=== PATIENT | male | born 1960 | race Caucasian/White ===

== ENCOUNTER → 2019-12-07 09:32 | Outpatient (CLI) | payer OTHER, SELFPAY ==
[2019-12-07 10:11] LABS: Add Manual Diff / Slide Review NO; Basophils Absolute Auto 100 /uL (0-100); Basophils Percent Auto 1.1 % (0-2); Eosinophils Absolute Auto 100 /uL (0-450); Eosinophils Percent Auto 1.1 % (2-4); Hematocrit 42.2 % (41-53); Hemoglobin 14.3 g/dL (13.5-17.5); Lymphocytes Absolute Auto 2000 /uL (1100-4500); Lymphocytes Percent Auto 32.9 % (25-40); Mean Corpuscular HGB Conc 33.9 % (30-36); Mean Corpuscular Hemoglobin 31.3 PG (26-34); Mean Corpuscular Volume 92.2 fL (80-100); Monocytes Absolute Auto 400 /uL (0-900); Monocytes Percent Auto 7.2 % (3-14); Neutrophils Absolute Auto 3500 /uL (1500-7000); Neutrophils Percent Auto 57.7 % (50-75); Platelet Count 250 X10^3/uL (150-400); Red Blood Cell Count 4.58 X10^6/uL (4.5-5.9); Red Cell Distribution Width 13.2 % (11.6-14.8); White Blood Cell Count 6.1 X10^3/uL (4.5-11.0)
[2019-12-07 11:02] LABS: Alanine Aminotransferase 17 IU/L (<50); Albumin Globulin Ratio 1.4 (1.0-2.8); Alkaline Phosphatase 42 U/L (38-126); Aspartate Aminotransferase 30 IU/L (17-59); Bilirubin Total 0.7 mg/dL (0.2-1.3); Blood Urea Nitrogen 11 mg/dL (9-20); Calcium 9.7 mg/dL (8.4-10.2); Carbon Dioxide 32 mmol/L (22-32); Chloride 104 mmol/L (98-107); Cholesterol 190 mg/dL (140-199); Estimated Glomerular Filt Rate > 60.0 mL/min (>60); Globulin 2.9 g/dL (1.7-4.1); Glucose 98 mg/dL (80-110); HDL Cholesterol 46 mg/dL (40-60); HEMOLYSIS < 15 (0-50); LDL Cholesterol Calculated 126 mg/dL (<100); Potassium 4.9 mmol/L (3.4-5.1); Sodium 139 mmol/L (137-145); Total Protein 6.9 g/dL (6.3-8.2); Triglycerides 89 mg/dL (35-150)
[2019-12-07 11:17] LABS: Vitamin D 25 Hydroxy (D3) 49.9 ng/mL (30.0-100.0)
[2019-12-07 11:19] LABS: Free T3, Triiodothyronine Free 3.39 pg/mL (2.77-5.27); Free T4, Direct Thyroxine 0.68 ng/dL (0.78-2.19)
[2019-12-07 11:32] LABS: Thyroid Stimulating Hormone 1.97 uIU/mL (0.47-4.68)
== END ==
PROVIDERS: PCP Family Medicine; Referring Provider Family Medicine; Visit Provider Family Medicine
DX: E05.90 Thyrotoxicosis, unspecified without thyrotoxic crisis or storm (principal); Z86.39 Personal history of other endocrine, nutritional and metabolic disease
CPT/HCPCS: 36415; 80053; 80061; 82306; 84439; 84443; 84481; 85025

== ENCOUNTER → 2021-06-30 08:03 | Outpatient (CLI) | payer OTHER, SELFPAY ==
[2021-06-30 09:16] LABS: Blood Urea Nitrogen 10 mg/dL (9-20); Calcium 9.7 mg/dL (8.4-10.2); Carbon Dioxide 33 mmol/L (22-32); Chloride 105 mmol/L (98-107); Estimated Glomerular Filt Rate > 60.0 mL/min (>60); Glucose 95 mg/dL (80-110); HEMOLYSIS < 15 (0-50); Potassium 4.4 mmol/L (3.4-5.1); Sodium 139 mmol/L (137-145)
[2021-06-30 09:48] LABS: TSH w/ Reflex to FT4 1.66 uIU/mL (0.47-4.68)
== END ==
PROVIDERS: PCP Student in an Organized Health Care Education/Training Program; Referring Provider Student in an Organized Health Care Education/Training Program; Visit Provider Student in an Organized Health Care Education/Training Program
DX: I10 Essential (primary) hypertension (principal)
CPT/HCPCS: 36415; 80048; 84443

== ENCOUNTER → 2021-11-26 07:45 | Outpatient (CLI) | payer OTHER, SELFPAY | PROVIDERS: PCP Student in an Organized Health Care Education/Training Program; Referring Provider Student in an Organized Health Care Education/Training Program; Visit Provider Student in an Organized Health Care Education/Training Program | DX: Z12.5 Encounter for screening for malignant neoplasm of prostate (principal) | CPT/HCPCS: 36415; G0103 ==

== ENCOUNTER → 2022-09-07 12:50 | Outpatient (CLI) | payer OTHER, SELFPAY ==
--- NOTE | 2022-09-07 12:51 | DI.CT.S_ITS ---
PROCEDURE: CT HEAD/BRAIN WO CON INDICATIONS: Concussion TECHNIQUE: Noncontrast 4.5 mm thick angled axial sections acquired from the foramen magnum to the vertex, with coronal and sagittal reformats. For radiation dose reduction, the following was used: automated exposure control, adjustment of mA and/or kV according to patient size. COMPARISON: None. FINDINGS: Image quality: Excellent. CSF spaces: Basal cisterns are patent. No extra-axial fluid collections. Ventricles are normal in size and shape. Brain: No midline shift. No intracranial masses or hemorrhage. Cummings-white matter interface is normal. Skull and face: Calvarium and visualized facial bones are intact, without suspicious lesions. Sinuses: Visualized sinuses and mastoids are clear. IMPRESSION: No acute intracranial abnormality. Dictated by: Nitin Ware M.D. on 09/07/2022 at 13:03 Approved by: Nitin Ware M.D. on 09/07/2022 at 13:07
== END ==
PROVIDERS: PCP Student in an Organized Health Care Education/Training Program; Referring Provider Student in an Organized Health Care Education/Training Program; Visit Provider Student in an Organized Health Care Education/Training Program
DX: S06.0XAA Concussion with loss of consciousness status unknown, initial encounter (principal); X58.XXXA Exposure to other specified factors, initial encounter
CPT/HCPCS: 70450

== ENCOUNTER 2022-09-09 06:48 | Day surgery (SDC) | payer OTHER, SELFPAY ==
[2022-09-04 14:48] VITALS: BMI 27.9
[2022-09-09 07:17] VITALS: BP 124/78; PULSE 65; RESP 21; TEMP 36.6; O2SAT 100; BMI 27.9
[2022-09-09] MEDS: LACTATED RINGERS 1,000 ML 100 ML IV (07:28)
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
[2022-09-09] MEDS: CLINDAMYCIN 900 MG/50 ML PIGGYBACK 50 MG IV (07:50)
--- NOTE | 2022-09-09 08:06 | SUR.OPER ---
Supine on padded OR bed, head on pillow, arms secured on padded arm boards at <90 degrees abduction, legs uncrossed, safety belt at thigh, tape over blanket over lower legs. Gel pad under heels.
[2022-09-09] MEDS: BUPIVACAINE 0.25% (PF) VIAL 30 ML INJ (08:13)
--- NOTE | 2022-09-09 08:57 | P.OP_ITS ---
Operative Date/Time/Diagnoses Date of procedure: 09/09/22 Time of procedure: 08:57 Pre-op diagnosis: Left inguinal hernia Post-op diagnosis: same Procedure & Clinicians Procedure: Open left inguinal hernia repair with mesh Same procedure as scheduled: Yes Indications: 62-year-old man with a symptomatic reducible left inguinal hernia. Surgeon: Murali Chavez Anesthesia Type: General Operative Notes Findings: Left indirect defect. No direct floor hernia Specimen(s): none sent Estimated Blood Loss (mL): 10 Procedure in detail: The patient was placed supine on the table and bilateral lower extremity compression devices were applied. Anesthesia was induced they were intubated with an LMA and received clindamycin. A time-out was performed. They were prepped and draped in sterile fashion. The left external inguinal ring and the anterior superior iliac crest were identified and marked. 1 finger breath above the inguinal ligament the skin was infiltrated with 0.25% bupivacaine. The skin incision was made, the subcutaneous tissues were divided with electrocautery exposing the external oblique aponeurosis which was then opened along the direction of its fibers. Using blunt dissection the internal oblique aporneurosis was from the external oblique upper leaflet. The cord was carefully dissected away from the inguinal canal adjacent to the pubic tubercle. The cord including the vas deferens, testicular bloody supply, ilioguinal and genital nerve were encircled with a Alexia drain. No direct f anahy defect within the inguinal canal was identified.. The cremasteric fibers surrounding the cord were divided adjacent to the internal ring. The vas deferens and the testicular vessels were preserved and protected. The cord contents were carefully explored. There was a small indirect hernia on the anterior medial aspect of the cord which was skeletonized away from the vas deferens and testicular blood supply. The indirect hernia was skeletonized back to the internal ring and reduced spontaneously into the abdomen. A 7x 15 cm lightweight Bard Pro Loop hernia mesh was anchored to the insertion of the rectus muscle at the pubic tubercle such that there was approximately 2 cm of tubercle overlap with Ethibond. The inferior edge of the mesh was secured to the shelving edge of the inguinal ligament using Ethibond. Interrupted 3 0 Vicryl suture was used to anchor the superior aspect of the mesh to the conjoined tendon in several places. The tails were then reapproximated loosely around the spermatic cord. The tails of the mesh were then tucked under the external oblique aponeurosis. The repair was checked for hemostasis. The wound was irrigated with sterile saline. The external oblique aponeurosis was reapproximated in a running fashion using 3 0 Vicryl. The subcutaneous tissues were reapproximated with 3 0 Vicryl skin closed with 4 0 Monocryl followed by the application of Dermabond. At the end of the operation I ensured that both testicles were within the scrotum. The sponge instrument count at the end operation was correct. The patient emerged from anesthesia was extubated and transferred to the postoperative care unit in stable condition. A total of 30 ml of of 0.25% bupivicaine was used to infiltrate the skin. Complications: none Post-operative Condition: stable Disposition: same day surgery
[2022-09-09 08:58] VITALS: BP 118/61; PULSE 90; RESP 18; TEMP 36.3; O2SAT 95
[2022-09-09 09:03] VITALS: BP 134/68; PULSE 96; RESP 16; O2SAT 94
[2022-09-09 09:08] VITALS: BP 125/62; PULSE 87; RESP 20; O2SAT 93
[2022-09-09 09:12] VITALS: BP 109/63; PULSE 76; RESP 20; TEMP 36.3; O2SAT 92
[2022-09-09 09:23] VITALS: BP 108/63; PULSE 85; RESP 18; TEMP 36.3; O2SAT 96
== END 2022-09-09 09:38 | disposition home or self-care (01) ==
PROVIDERS: PCP Student in an Organized Health Care Education/Training Program; Referring Provider Surgery; Visit Provider Surgery
PROC: (CPT 49505; principal; 2022-09-09 07:45)
DX: K40.90 Unilateral inguinal hernia, without obstruction or gangrene, not specified as recurrent (principal)
CPT/HCPCS: 49505; J1100; J1885; J2405; J2704; J3010

== ENCOUNTER 2022-12-11 15:00 | Outpatient (RCR) | payer OTHER, SELFPAY ==
--- NOTE | 2022-10-22 17:28 | PT.OIE ---
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) Muscle weakness (generalized) (10/22/22) Past Medical History (Last Updated 09/04/22 @ 14:50 by Livia Celaya RN) Benign prostatic hyperplasia (~2011) Chicken pox (~1967) Elevated cholesterol Enlarged prostate History of elevated PSA (~2011) History of recurrent ear infection Hyperthyroidism (~2014) Hyperthyroidism Measles Mumps Prostate cancer (~2012) Prostate cancer Retinal tear (~2017) Tinnitus (~2017) Past Surgical History (Last Reviewed 07/12/22 @ 09:10 by Murali Chavez MD) Anesthesia History of colonoscopy (~2015) History of colonoscopy (~2018) History of hernia repair (~1973) Retinal tear (~2018) Visit Care Team Role Provider Type Jonah Ramirez MD Attending Provider Physician Family Provider Primary Care Provider Referring Provider Specialty: Internal Medicine Address: [address] [place] [address], [address], [facility] Email: [email or web address] Physical Therapy Initial Evaluation PT-OP-A Visit Information Start: 10/16/22 18:13 Freq: Status: Active Protocol: Document 10/22/22 09:33 LRN (Rec: 10/22/22 10:31 LRN [id number]) Out-Patient Physical Therapy Visit Information Visit Information Visit Type Initial Evaluation Visit Start Time 09:33 Visit Stop Time 10:22 Total Visit Minutes 49 Visit Number 06/11 Evaluation Information Evaluation Date 10/22/22 Precautions Precautions Hernia surgery 08/2022 left; 1973 right. Hasn't worked out in gym since hernia surgery, but started bench pressing in May and chest AB press/reverse AB press. Pull down, BIceps/ triceps noproblem. Hyperthyroid. PT-OP-B Current Condition Start: 10/16/22 18:13 Freq: Status: Active Protocol: Document 10/22/22 09:33 LRN (Rec: 10/22/22 10:31 LRN [id number]) Current Condition History of Current Condition Onset Date 1 yr ago Current Complaints L shoulder pain. History of Current Condition Insidious onset of L painful shoulder, that he thinks involves the RC. Thinks he first noticed it waking up in the night. Nighttime trying to find a comfortable position is difficult and worsens as the night goes on. Also pulled a tendon on the L lateral elbow and occasionally flares up and causes pain. He also had trouble reaching behind his back in the posterior aspect of the L shoulder. Pt denies any previous injury or trauma to the L shoulder. Turning head to L is uncomfortable and stiff in the neck, but not to the R. Prior Treatments and Tests None Treatment Goals Patient/Caregiver Goals Pt goal is: - to have pain go away at night. - to obtain full L shoulder mobility (no pain with washing vest backer over shoulder, and over opp shoulder and drying the back w/L arm overhead, start weedeater with L arm). - kayaking without pain (last time was in February of 2022). Personal Factors Other Personal Factors That May Effect Works FT at home on computer ( Therapy/Recovery 2/3rds to 50% of the time), in sitting, sometimes stands. Doesn't have a standing adjustable desk. PT-OP-C Subjective Start: 10/16/22 18:13 Freq: Status: Active Protocol: Document 10/22/22 09:33 LRN (Rec: 10/22/22 10:31 LRN [id number]) Patient Questionnaires Quick Dash- Upper Extremity Quick Dash UE Score 29 Quick Dash UE Impairment 20 to 39% Impaired (Score 20- 39) OP-PT Pain Assessment Pain Assessment Grid Paper Pain Assessment Grid Completed Yes Location L shoulder Pain Location Details L posterior acromion Intensity 7 Scale Used Numeric (0 - 10) Description Acute,Sharp Frequency Intermittent Other Pain Aggravating Factors Sleeping on R side and sometimes L/stomach. Swinging arm in [place]. Other Pain Alleviating Factors ANDREW PT-OP-E Functional Tests Start: 10/16/22 18:13 Freq: Status: Active Protocol: Document 10/22/22 09:33 LRN (Rec: 10/22/22 10:31 LRN [id number]) Functional Tests Apley's Scratch Test Action 1- Left 3 above inferior scap angle Action 1- Right 1 above inferior scap angle Action 2- Left 1 above T3 Action 2- Right T3 Action 3- Left T9 Action 3- Right T7 PT-OP-J Posture/Palpation/Skin Start: 10/16/22 18:13 Freq: Status: Active Protocol: Document 10/22/22 09:33 LRN (Rec: 10/22/22 10:31 N [id number]) Posture Evaluation Position Standing Head/C-Spine Posture Side Bent Right,Forward Head T-Spine Posture Increased Kyphosis L-Spine Posture Increased Lordosis Shoulder Posture (L) Rounded,(L) Forward Arm Posture (L) Internally Rotated,(R) Internally Rotated Pelvis Posture Neutral Hip Posture (L) Externally Rotated,(R) Externally Rotated Comments Posture Comments Dowagers Hump Palpation Assessment Location Posterior neck Palpation Location C/S Paraspinals Palpation Findings Soft Tissue Tightness, Tenderness L shoulder Palpation Location Posterior acromion process Palpation Findings Tenderness Palpation Details No pain in Supraspinatus, anterior/medial posterior Deltoid, Infraspinatus, Teres Major or Teres Minor. PT-OP-K Range of Motion Start: 10/16/22 18:13 Freq: Status: Active Protocol: Document 10/22/22 09:33 LRN (Rec: 10/22/22 10:31 LR [id number]) Cervical Spine Range of Motion Cervical Spine Active Degrees Testing Position Sitting Flexion 46 Extension 45 Rotation Left 50 Rotation Right 55 Lateral Flexion Left 28 Lateral Flexion Right 25 Comments Discomfort ~C4-C5 with L rot and R SB. Shoulder Goniometric Range of Motion Shoulder Right Active Shoulder ROM WFL Yes Testing Position Sitting Comments WNL Left Active Shoulder ROM WFL No Testing Position Sitting Comments WNL with painful arc at 90 deg 's AB. PT-OP-L Special Tests Start: 10/16/22 18:13 Freq: Status: Active Protocol: Document 10/22/22 09:33 LRN (Rec: 10/22/22 10:31 [facility] [id number]) Special Tests Cervical Spine Special Tests Traction Test Results - Upper Limb Tension Test Test Results + median left Spurling's Test Test Results - Foraminal Compression Test Results - Shoulder Special Tests Passive ER Rotator Cuff Test Results + left Comments Pain with forced ER Belly Press Test Results - left Empty Can Test Results - left Drop Arm Rotator Cuff Test Results - left IR/Horizontal ADD Impingement Test Results - left Elevation Impingement Test Results + left PT-OP-M Strength Start: 10/16/22 18:13 Freq: Status: Active Protocol: Document 10/22/22 09:33 LRN (Rec: 10/22/22 10:31 LRN [id number]) Shoulder Strength Shoulder Manual Muscle Testing Right Comments All major ms groups are 5/5. Left External Rotation 4- Good- Comments Pain with shoulder ER Elbow/Forearm Strength Elbow and Forearm Manual Muscle Testing Right Comments All major ms groups are 5/5. Left Comments All major ms groups are 5/5. Hand Duct Layer Supervisor/Pinch Strength Hand Dominance Hand Dominance Left PT-OP-Q Treatments Start: 10/16/22 18:13 Freq: Status: Active Protocol: Document 10/22/22 09:33 LRN (Rec: 10/22/22 10:31 LRN [id number]) Self-Care/Home Management Treatment Education Other Education Discussed results of evaluation, goals, and plan of care (POC). Pt agreeable to goals and POC. I/S pt in proper sitting posture during use of computer , and discussed mechanism L shoulder pain with poor posturing. Activities Self-Care/Home Management Activities I/S pt to check positioning at computer at home and I/S pt in proper head/neck posturing for sitting and nighttime positioning. Pt to monitor nighttime positioning. PT-OP-T Assessment and Plan Start: 10/16/22 18:13 Freq: Status: Active Protocol: Document 10/22/22 09:33 LRN (Rec: 10/22/22 10:31 LRN [id number]) Physical Therapy Assessment Rehab Potential Rehabilitation Potential Excellent Evaluation Complexity Number of Personal Factors/Comorbidities 1-2 Number of Body Systems Impaired 4 or More Clinical Presentation at Evaluation Evolving Impairments Impairments Activity Tolerance,Functional Activities,Pain,Posture,ROM, Soft Tissue Mobility,Strength Goals Four Impairment Decreased function. Impairment UE Quickdash score is 29, (20- 39% impaired, score 20-39) Alf Goal (LTG) Pt will be able to start weedeater with L arm and kayak for short distance without pain (last time kayaked was February of 2022). LTG Duration 12/25/22 Three Impairment Decrease L scapular stabilizer strength w/poor scapulohumeral rhythm Impairment Pt shows dysfunctional L scapulohumeral rhythm at 90 deg's AB and on return from max AB. Short Term Goal (STG) Pt demonstrates normal L scapulohumeral rhythm with shoulder AB. STG Duration 11/19/22 Sap Bw Bi Developer Goal (LTG) Strengthen L shoulder to eliminate L shoulder pain at night. LTG Duration 12/25/22 Two Impairment Decreased L shoulder mobility Short Term Goal (STG) Pt will demonstrate symmetry with L shoulder mobility minimal to no discomfort. STG Duration 11/19/22 Alf Goal (LTG) No pain with washing his back when placing L hand over the same and opp shoulder, and drying the back w the L arm overhead. LTG Duration 12/25/22 One Impairment Lacks appropriate self care HEP Short Term Goal (STG) Educate in proper sitting/ standing posture. STG Duration 11/06/22 Alf Goal (LTG) Pt will be independent in a self care progressive strengthening program for the neck/L shoulder-scapula. LTG Duration 12/25/22 Assessment Summary Assessment Pt presents with mechanical dysfunction of the R shoulder/ neck with poor head/neck posturing (Dowager's hump w/ kyphosis), poor R scapulohumeral rhythm, decreased L shoulder ER strength due to pain and impingement of posterior acromion process with R shoulder AB/ext/arm circles, and R cervical soft tissue dysfunction with notable tightness of R cervical paraspinals. Pt R posterior shoulder pain is present today only in sitting/standing, but not palpable in supine. Pt will benefit from skilled phyiscal therapy to work to achieve the above stated goals . Physical Therapy Plan Frequency and Duration Frequency of Treatment 2x/Week Plan of Care Start Date 10/22/22 Plan of Care End Date 12/25/22 Therapeutic Interventions Therapeutic Interventions Home Exercise Program,Joint Mobilizations,Manual Therapy, Neuromuscular Re-education, Patient/Caregiver Education, Self-Care/Home Management,Soft Tissue Mobilization,Taping, Therapeutic Activities, Therapeutic Exercises Modalities Cold Pack/Ice Massage,Hot Packs,Ultrasound Next Visit Focus/Plan Next Note Type Treatment Note Next Visit Plan 2x/week for first 2 weeks for placement on self care program , then 1x/week for progression of program if pt demonstrates progression with his rehabilitation. Check C/S strength, UE neural tension, and assess VA. Pt education/handouts issued for: Proper sitting/standing posture, educate in proper sleeping posturing; and use of modalities (cryotherapy) for pain. Cervical/R shoulder strengthening for proper head/ neck posturing, head-neck/ scapular stabilization/ positioning, RC (ER) strengthening. Manual: Thoracic mobilization , R shoulder mob Ex: RC, UE neural glides if needed, scapular stabilizers, neck (rot/SB)/thoracic (rot/ ext) mobility ex's. Modalities as needed for pain.
--- NOTE | 2022-10-22 17:29 | PT.OPPOC ---
Physical, Occupational & Speech Therapy At 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) Muscle weakness (generalized) (10/22/22) Visit Care Team Role Provider Type Jonah Ramirez MD Attending Provider Physician Family Provider Primary Care Provider Referring Provider Specialty: Internal Medicine Address: [address] [place] [address], [address], [address] Email: [email or web address] Plan Of Care PT-OP-T Assessment and Plan Start: 10/16/22 18:13 Freq: Status: Active Protocol: Document 10/22/22 09:33 LRN (Rec: 10/22/22 10:31 LRN [id number]) Physical Therapy Assessment Rehab Potential Rehabilitation Potential Excellent Evaluation Complexity Number of Personal Factors/Comorbidities 1-2 Number of Body Systems Impaired 4 or More Clinical Presentation at Evaluation Evolving Impairments Impairments Activity Tolerance,Functional Activities,Pain,Posture,ROM, Soft Tissue Mobility,Strength Goals Four Impairment Decreased function. Impairment UE Quickdash score is 29, (20- 39% impaired, score 20-39) Network Lead Goal (LTG) Pt will be able to start weedeater with L arm and kayak for short distance without pain (last time kayaked was February of 2022). LTG Duration 12/25/22 Three Impairment Decrease L scapular stabilizer strength w/poor scapulohumeral rhythm Impairment Pt shows dysfunctional L scapulohumeral rhythm at 90 deg's AB and on return from max AB. Short Term Goal (STG) Pt demonstrates normal L scapulohumeral rhythm with shoulder AB. STG Duration 11/19/22 Penitentiary Goal (LTG) Strengthen L shoulder to eliminate L shoulder pain at night. LTG Duration 12/25/22 Two Impairment Decreased L shoulder mobility Short Term Goal (STG) Pt will demonstrate symmetry with L shoulder mobility minimal to no discomfort. STG Duration 11/19/22 Network Lead Goal (LTG) No pain with washing his back when placing L hand over the same and opp shoulder, and drying the back w the L arm overhead. LTG Duration 12/25/22 One Impairment Lacks appropriate self care HEP Short Term Goal (STG) Educate in proper sitting/ standing posture. STG Duration 11/06/22 Network Lead Goal (LTG) Pt will be independent in a self care progressive strengthening program for the neck/L shoulder-scapula. LTG Duration 12/25/22 Assessment Summary Assessment Pt presents with mechanical dysfunction of the R shoulder/ neck with poor head/neck posturing (Dowager's hump w/ kyphosis), poor R scapulohumeral rhythm, decreased L shoulder ER strength due to pain and impingement of posterior acromion process with R shoulder AB/ext/arm circles, and R cervical soft tissue dysfunction with notable tightness of R cervical paraspinals. Pt R posterior shoulder pain is present today only in sitting/standing, but not palpable in supine. Pt will benefit from skilled phyiscal therapy to work to achieve the above stated goals . Physical Therapy Plan Frequency and Duration Frequency of Treatment 2x/Week Plan of Care Start Date 10/22/22 Plan of Care End Date 12/25/22 Therapeutic Interventions Therapeutic Interventions Home Exercise Program,Joint Mobilizations,Manual Therapy, Neuromuscular Re-education, Patient/Caregiver Education, Self-Care/Home Management,Soft Tissue Mobilization,Taping, Therapeutic Activities, Therapeutic Exercises Modalities Cold Pack/Ice Massage,Hot Packs,Ultrasound Next Visit Focus/Plan Next Note Type Treatment Note Next Visit Plan 2x/week for first 2 weeks for placement on self care program , then 1x/week for progression of program if pt demonstrates progression with his rehabilitation. Check C/S strength, UE neural tension, and assess VA. Pt education/handouts issued for: Proper sitting/standing posture, educate in proper sleeping posturing; and use of modalities (cryotherapy) for pain. Cervical/R shoulder strengthening for proper head/ neck posturing, head-neck/ scapular stabilization/ positioning, RC (ER) strengthening. Manual: Thoracic mobilization , R shoulder mob Ex: RC, UE neural glides if needed, scapular stabilizers, neck (rot/SB)/thoracic (rot/ ext) mobility ex's. Modalities as needed for pain. Plan of Care Dates Plan of Care Start Date 10/22/22 Plan of Care End Date 12/25/22 Electronically Signed by: Ebony Morales, PT 10/23/22 [id number] If you are in agreement with this Plan of Care, please return a signed and dated copy. I have reviewed this Plan of Care and certify that the skilled therapy services above are required to meet the patient?s needs. Physician Signature Date Printed Name and Credentials Clinical Instructor Signature Printed Name and Credentials
--- NOTE | 2022-11-10 18:18 | PT-OP ANOTE ---
(18:18) Returned pt call regarding new symptoms in arm of frequent numbness/tingling in arm to fingertips, most noted when in bed. Pt noted he is trying to correct his posturing at nighttime and does seem to help, stating he also sleeps on his back. Recommended pt try to have his head in a more neutral position when in supine with more support under his head in sidelie and less in supine. I/S pt to try heat to neck for symptoms relief. Pt scheduled for PT 11/12/22. Pt notified PT not available tomorrow and will see on 11/12/22.
--- NOTE | 2022-11-12 14:25 | PT.OTN ---
Current Diagnoses Other specific arthropathies, not elsewhere classified, left shoulder (11/12/22) Postural kyphosis, cervicothoracic region (11/12/22) Muscle weakness (generalized) (11/12/22) Physical Therapy Treatment Note PT-OP-A Visit Information Start: 10/16/22 18:13 Freq: Status: Active Protocol: Document 11/12/22 10:32 LRN (Rec: 11/12/22 11:24 LRN [id number]) Out-Patient Physical Therapy Visit Information Visit Information Visit Type Treatment Note Visit Start Time 09:32 Visit Stop Time 10:18 Total Visit Minutes 41 Visit Number 07/12 Evaluation Information Evaluation Date 10/22/22 Precautions Precautions Hernia surgery 08/2022 left; 1973 right. Hasn't worked out in gym since hernia surgery, but started bench pressing in May and chest AB press/reverse AB press. Pull down, BIceps/ triceps noproblem. Hyperthyroid. PT-OP-B Current Condition Start: 10/16/22 18:13 Freq: Status: Active Protocol: Document 10/22/22 09:33 LRN (Rec: 10/22/22 10:31 LRN [id number]) Current Condition History of Current Condition Onset Date 1 yr ago Current Complaints L shoulder pain. History of Current Condition Insidious onset of L painful shoulder, that he thinks involves the RC. Thinks he first noticed it waking up in the night. Nighttime trying to find a comfortable position is difficult and worsens as the night goes on. Also pulled a tendon on the L lateral elbow and occasionally flares up and causes pain. He also had trouble reaching behind his back in the posterior aspect of the L shoulder. Pt denies any previous injury or trauma to the L shoulder. Turning head to L is uncomfortable and stiff in the neck, but not to the R. Prior Treatments and Tests None Treatment Goals Patient/Caregiver Goals Pt goal is: - to have pain go away at night. - to obtain full L shoulder mobility (no pain with washing backup sawyer over shoulder, and over opp shoulder and drying the back w/L arm overhead, start weedeater with L arm). - kayaking without pain (last time was in February of 2022). Personal Factors Other Personal Factors That May Effect Works FT at home on computer ( Therapy/Recovery 2/3rds to 50% of the time), in sitting, sometimes stands. Doesn't have a standing adjustable desk. PT-OP-C Subjective Start: 10/16/22 18:13 Freq: Status: Active Protocol: Document 11/12/22 10:32 LRN (Rec: 11/12/22 11:24 LRN [id number]) OP-PT Subjective Patient Comments Patient Comments Correcting head/neck posture is helping with discomfort in the day. Nighttime is still bad. Takes meds for pain ( Tylenol and IBP) able to sleep 3-4 hours. Pt sleeps on R side (80-90% of time) only because of deviated septum causes difficulty breathing and snoring with L sidelie. PT-OP-E Functional Tests Start: 10/16/22 18:13 Freq: Status: Active Protocol: Document 10/22/22 09:33 LRN (Rec: 10/22/22 10:31 LRN [id number]) Functional Tests Apley's Scratch Test Action 1- Left 3 above inferior scap angle Action 1- Right 1 above inferior scap angle Action 2- Left 1 above T3 Action 2- Right T3 Action 3- Left T9 Action 3- Right T7 PT-OP-J Posture/Palpation/Skin Start: 10/16/22 18:13 Freq: Status: Active Protocol: Document 10/22/22 09:33 LRN (Rec: 10/22/22 10:31 LRN [id number]) Posture Evaluation Position Standing Head/C-Spine Posture Side Bent Right,Forward Head T-Spine Posture Increased Kyphosis L-Spine Posture Increased Lordosis Shoulder Posture (L) Rounded,(L) Forward Arm Posture (L) Internally Rotated,(R) Internally Rotated Pelvis Posture Neutral Hip Posture (L) Externally Rotated,(R) Externally Rotated Comments Posture Comments Dowagers Hump Palpation Assessment Location Posterior neck Palpation Location C/S Paraspinals Palpation Findings Soft Tissue Tightness, Tenderness L shoulder Palpation Location Posterior acromion process Palpation Findings Tenderness Palpation Details No pain in Supraspinatus, anterior/medial posterior Deltoid, Infraspinatus, Teres Major or Teres Minor. PT-OP-K Range of Motion Start: 10/16/22 18:13 Freq: Status: Active Protocol: Document 10/22/22 09:33 LRN (Rec: 10/22/22 10:31 LRN [id number]) Cervical Spine Range of Motion Cervical Spine Active Degrees Testing Position Sitting Flexion 46 Extension 45 Rotation Left 50 Rotation Right 55 Lateral Flexion Left 28 Lateral Flexion Right 25 Comments Discomfort ~C4-C5 with L rot and R SB. Shoulder Goniometric Range of Motion Shoulder Right Active Shoulder ROM WFL Yes Testing Position Sitting Comments WNL Left Active Shoulder ROM WFL No Testing Position Sitting Comments WNL with painful arc at 90 deg 's AB. PT-OP-L Special Tests Start: 10/16/22 18:13 Freq: Status: Active Protocol: Document 11/12/22 10:32 LRN (Rec: 11/12/22 11:24 LRN [id number]) Special Tests Cervical Spine Special Tests Vertebral Artery Test Results - bilaterally Comments head to L caused L neck pain and numbness/tingling down arm . Neural Special Tests- Upper Body Median Nerve Tension Test Results + L>R Comments Forearm tension. Radial Nerve Tension Test Results Slight tension Left, - right Ulnar Nerve Tension Test Results + left, - right PT-OP-M Strength Start: 10/16/22 18:13 Freq: Status: Active Protocol: Document 10/22/22 09:33 LRN (Rec: 10/22/22 10:31 LRN [id number]) Shoulder Strength Shoulder Manual Muscle Testing Right Comments All major ms groups are 5/5. Left External Rotation 4- Good- Comments Pain with shoulder ER Elbow/Forearm Strength Elbow and Forearm Manual Muscle Testing Right Comments All major ms groups are 5/5. Left Comments All major ms groups are 5/5. Hand Conservation Specialist/Pinch Strength Hand Dominance Hand Dominance Left PT-OP-Q Treatments Start: 10/16/22 18:13 Freq: Status: Active Protocol: Document 11/12/22 10:32 LRN (Rec: 11/12/22 11:24 LRN [id number]) Therapeutic Exercises Supine Exercises Passive radial n glide Supine Exercise Name Passive radial n glide Side bilateral Reps/Minutes 2x Comments No neutral tension reported. Median n glide Supine Exercise Name Median n glide Side bilateral Comments Cuing to slow ex and not force movement Ulnar n glide Supine Exercise Name Ulnar n glide L primarily Side bilateral Comments Cuing to slow ex and not force movement Neck elongation Supine Exercise Name Neck Elongation Reps/Minutes 3 breaths hold x 10 Comments Cuing to slow ex and not force movement Sitting Exercises Scalene stretch Sitting Exercise Name Anterior, lateral and posterior scalene stretch Side left Reps/Minutes 5 SH x 6 each Comments Extra time taken for I/S of ex . Manual Therapy Treatment Soft Tissue Mobilization L anterior scalene Body Location L anterior scalene Mobilization Type Sustained Pressure Intensity/Depth Moderate Body Position Supine Comments Pt tight with anterior scalene . Possibly overstretch of middle and posterior scalene from narrow pillow when in R sidelie. Manual Traction Cervical Details Angle: Neutral, 30, 45 & 60 deg's flexed Body Position Supine Reps/Duration 5' Comments No change in numbness/tingling of L UE with traction. Self-Care/Home Management Treatment Education Patient Education Home Exercise Program,Posture Other Education Pt educated and discussed: proper sitting posture and at computer, use of cell phone keeping proper head/neck posturing, and best head/neck posturing with R sided sleeping. Activities Self-Care/Home Management Activities Issued & reviewed handouts for proper sitting and standing posture and anatomical positioning for sitting Issued & reviewed HEP: Median n sliders and Ulnar butterfly and nerve glide. PT-OP-T Assessment and Plan Start: 10/16/22 18:13 Freq: Status: Active Protocol: Document 11/12/22 10:32 LRN (Rec: 11/12/22 11:24 LRN [id number]) Physical Therapy Assessment Goals Four Impairment Decreased function. Impairment UE Quickdash score is 29, (20- 39% impaired, score 20-39) General Assembler Goal (LTG) Pt will be able to start weedeater with L arm and kayak for short distance without pain (last time kayaked was February of 2022). LTG Duration 12/25/22 Three Impairment Decrease L scapular stabilizer strength w/poor scapulohumeral rhythm Impairment Pt shows dysfunctional L scapulohumeral rhythm at 90 deg's AB and on return from max AB. Short Term Goal (STG) Pt demonstrates normal L scapulohumeral rhythm with shoulder AB. STG Duration 11/19/22 Mcfp Goal (LTG) Strengthen L shoulder to eliminate L shoulder pain at night. LTG Duration 12/25/22 Two Impairment Decreased L shoulder mobility Short Term Goal (STG) Pt will demonstrate symmetry with L shoulder mobility minimal to no discomfort. STG Duration 11/19/22 General Assembler Goal (LTG) No pain with washing his back when placing L hand over the same and opp shoulder, and drying the back w the L arm overhead. LTG Duration 12/25/22 One Impairment Lacks appropriate self care HEP Short Term Goal (STG) Educate in proper sitting/ standing posture. STG Duration 11/06/22 General Assembler Goal (LTG) Pt will be independent in a self care progressive strengthening program for the neck/L shoulder-scapula. LTG Duration 12/25/22 Assessment Summary Assessment [facility] testing resulted in LUE radiculopathy of numbness/ tingling and L sided neck pain , but no change in LUE symptoms with manual C. tx; therefore symptoms likely due to overstretch of ms or C/S jt dysfunction. Held all L scalene stretch for HEP due to possible overstretch of L neck ms causing L UE numbness/ tingling. No L UE symptoms with supine lying at night, but present with R sidelie. Pt indicates his pillow thickness is much less support needed to maintain head in neutral. + median-jacobo and + ulnar-L. neural tension. Physical Therapy Plan Frequency and Duration Frequency of Treatment 2x/Week Plan of Care Start Date 10/22/22 Plan of Care End Date 12/25/22 Next Visit Focus/Plan Next Note Type Treatment Note Next Visit Plan 2x/week for first 2 weeks for placement on self care program , then 1x/week for progression of program if pt demonstrates progression with his rehabilitation. Next: Check C/S strength. Pt education/handouts issued for: Use of modalities ( cryotherapy) for pain. Cervical/R shoulder & L neck strengthening for proper head/ neck posturing & cervical stabilization, respectively; head-neck/scapular stabilization/positioning, RC (ER) strengthening. Manual: Thoracic mobilization , ?R shoulder mob Ex: RC, UE neural glides, scapular stabilizers, neck ( rot/SB)/thoracic (rot/ext) mobility ex's. Modalities as needed for pain.
--- NOTE | 2022-11-16 10:59 | PT.OTN ---
Current Diagnoses Other specific arthropathies, not elsewhere classified, left shoulder (11/16/22) Postural kyphosis, cervicothoracic region (11/16/22) Muscle weakness (generalized) (11/16/22) Physical Therapy Treatment Note PT-OP-A Visit Information Start: 10/16/22 18:13 Freq: Status: Active Protocol: Document 11/16/22 08:54 LRN (Rec: 11/16/22 10:58 LRN [id number]) Out-Patient Physical Therapy Visit Information Visit Information Visit Type Treatment Note Visit Start Time 08:54 Visit Stop Time 09:33 Total Visit Minutes 39 Visit Number 08/09 Evaluation Information Evaluation Date 10/22/22 Precautions Precautions Hernia surgery 08/2022 left; 1973 right. Hasn't worked out in gym since hernia surgery, but started bench pressing in May and chest AB press/reverse AB press. Pull down, BIceps/ triceps noproblem. Hyperthyroid. PT-OP-B Current Condition Start: 10/16/22 18:13 Freq: Status: Active Protocol: Document 10/22/22 09:33 LRN (Rec: 10/22/22 10:31 LRN [id number]) Current Condition History of Current Condition Onset Date 1 yr ago Current Complaints L shoulder pain. History of Current Condition Insidious onset of L painful shoulder, that he thinks involves the RC. Thinks he first noticed it waking up in the night. Nighttime trying to find a comfortable position is difficult and worsens as the night goes on. Also pulled a tendon on the L lateral elbow and occasionally flares up and causes pain. He also had trouble reaching behind his back in the posterior aspect of the L shoulder. Pt denies any previous injury or trauma to the L shoulder. Turning head to L is uncomfortable and stiff in the neck, but not to the R. Prior Treatments and Tests None Treatment Goals Patient/Caregiver Goals Pt goal is: - to have pain go away at night. - to obtain full L shoulder mobility (no pain with washing quarter backer over shoulder, and over opp shoulder and drying the back w/L arm overhead, start weedeater with L arm). - kayaking without pain (last time was in February of 2022). Personal Factors Other Personal Factors That May Effect Works FT at home on computer ( Therapy/Recovery 2/3rds to 50% of the time), in sitting, sometimes stands. Doesn't have a standing adjustable desk. PT-OP-C Subjective Start: 10/16/22 18:13 Freq: Status: Active Protocol: Document 11/16/22 08:54 LRN (Rec: 11/16/22 10:58 LRN [id number]) OP-PT Subjective Patient Comments Patient Comments States he tried heat first time today. States the median n stretch hurts if in tension , not in tneutral or on slack , pain in posterior shoulder and neck. Sleeping better holding better posture. So he is not getting worse, and maybe improved a little. PT-OP-E Functional Tests Start: 10/16/22 18:13 Freq: Status: Active Protocol: Document 10/22/22 09:33 LRN (Rec: 10/22/22 10:31 LRN [id number]) Functional Tests Apley's Scratch Test Action 1- Left 3 above inferior scap angle Action 1- Right 1 above inferior scap angle Action 2- Left 1 above T3 Action 2- Right T3 Action 3- Left T9 Action 3- Right T7 PT-OP-J Posture/Palpation/Skin Start: 10/16/22 18:13 Freq: Status: Active Protocol: Document 10/22/22 09:33 LRN (Rec: 10/22/22 10:31 LRN [id number]) Posture Evaluation Position Standing Head/C-Spine Posture Side Bent Right,Forward Head T-Spine Posture Increased Kyphosis L-Spine Posture Increased Lordosis Shoulder Posture (L) Rounded,(L) Forward Arm Posture (L) Internally Rotated,(R) Internally Rotated Pelvis Posture Neutral Hip Posture (L) Externally Rotated,(R) Externally Rotated Comments Posture Comments Dowagers Hump Palpation Assessment Location Posterior neck Palpation Location C/S Paraspinals Palpation Findings Soft Tissue Tightness, Tenderness L shoulder Palpation Location Posterior acromion process Palpation Findings Tenderness Palpation Details No pain in Supraspinatus, anterior/medial posterior Deltoid, Infraspinatus, Teres Major or Teres Minor. PT-OP-K Range of Motion Start: 10/16/22 18:13 Freq: Status: Active Protocol: Document 10/22/22 09:33 LRN (Rec: 10/22/22 10:31 LRN [id number]) Cervical Spine Range of Motion Cervical Spine Active Degrees Testing Position Sitting Flexion 46 Extension 45 Rotation Left 50 Rotation Right 55 Lateral Flexion Left 28 Lateral Flexion Right 25 Comments Discomfort ~C4-C5 with L rot and R SB. Shoulder Goniometric Range of Motion Shoulder Right Active Shoulder ROM WFL Yes Testing Position Sitting Comments WNL Left Active Shoulder ROM WFL No Testing Position Sitting Comments WNL with painful arc at 90 deg 's AB. PT-OP-L Special Tests Start: 10/16/22 18:13 Freq: Status: Active Protocol: Document 11/12/22 10:32 LRN (Rec: 11/12/22 11:24 LRN [id number]) Special Tests Cervical Spine Special Tests Vertebral Artery Test Results - bilaterally Comments head to L caused L neck pain and numbness/tingling down arm . Neural Special Tests- Upper Body Median Nerve Tension Test Results + L>R Comments Forearm tension. Radial Nerve Tension Test Results Slight tension Left, - right Ulnar Nerve Tension Test Results + left, - right PT-OP-M Strength Start: 10/16/22 18:13 Freq: Status: Active Protocol: Document 10/22/22 09:33 LRN (Rec: 10/22/22 10:31 LRN [id number]) Shoulder Strength Shoulder Manual Muscle Testing Right Comments All major ms groups are 5/5. Left External Rotation 4- Good- Comments Pain with shoulder ER Elbow/Forearm Strength Elbow and Forearm Manual Muscle Testing Right Comments All major ms groups are 5/5. Left Comments All major ms groups are 5/5. Hand Sourcing Internship/Pinch Strength Hand Dominance Hand Dominance Left PT-OP-Q Treatments Start: 10/16/22 18:13 Freq: Status: Active Protocol: Document 11/16/22 08:54 LRN (Rec: 11/16/22 10:58 LRN [id number]) Therapeutic Exercises Supine Exercises Pec Major stretch Supine Exercise Name On 06/01 roll: V-arms for stretch and scap depression/ retraction Reps/Minutes 3' Pec stretch Supine Exercise Name On 06/01 roll-scap retract f/b long hold pec stretch. Side bilateral Reps/Minutes 3' Neck elongation Supine Exercise Name Neck Elongation Reps/Minutes 3 breaths hold x 10 Comments Cuing to slow ex and not force movement Standing Exercises Shoulder Ext Standing Exercise Name Straight arm and bent arm Reps/Minutes 12' Comments Cuing for scap depression/ retraction, chin tuck Scapular depression Standing Exercise Name Scap depression awareness training Side bilateral Equipment Used Lev 3 TBAnd 2 strips Reps/Minutes 10' Comments Cuing for scap depression/ retraction, chin tuck Median n stretch Standing Exercise Name Median n stretch Side left Reps/Minutes 2' Comments Educ for not working into symptoms Manual Therapy Treatment Manual Traction Cervical Details Angle: 60 deg's flexed Body Position Supine Reps/Duration 3' Comments Resolution of numbness/ tingling of L UE with traction . Self-Care/Home Management Treatment Education Patient Education Home Exercise Program Other Education Pt education/discussion in proper sitting/standing posture. Activities Self-Care/Home Management Activities Issued & reviewed HEP: Scapular depression, standing Y scap depression/retraction and sidelie scap depression/ retraction. PT-OP-T Assessment and Plan Start: 10/16/22 18:13 Freq: Status: Active Protocol: Document 11/16/22 08:54 LRN (Rec: 11/16/22 10:58 LRN [id number]) Physical Therapy Assessment Goals Three Impairment Decrease L scapular stabilizer strength w/poor scapulohumeral rhythm Impairment Pt shows dysfunctional L scapulohumeral rhythm at 90 deg's AB and on return from max AB. Short Term Goal (STG) Pt demonstrates normal L scapulohumeral rhythm with shoulder AB. STG Duration 11/19/22 Sales Applications Engineer Goal (LTG) Strengthen L shoulder to eliminate L shoulder pain at night. LTG Duration 12/25/22 Two Impairment Decreased L shoulder mobility Short Term Goal (STG) Pt will demonstrate symmetry with L shoulder mobility minimal to no discomfort. STG Duration 11/19/22 [facility]sp Goal (LTG) No pain with washing his back when placing L hand over the same and opp shoulder, and drying the back w the L arm overhead. LTG Duration 12/25/22 One Impairment Lacks appropriate self care HEP Short Term Goal (STG) Educate in proper sitting/ standing posture/ 11/16/22: Pt educated in proper sitting and standing posture with HO's issued. STG Duration 11/06/22 (11/16/22: MET GOAL) Sales Applications Engineer Goal (LTG) Pt will be independent in a self care progressive strengthening program for the neck/L shoulder-scapula. 11/16/22: HEP: Scap depression and standing/ sidelie depression/retraction LTG Duration 12/25/22 progressed 11/16/22 Progress Towards Goals Progress Comments STG #1 MET. Progressed HEP. Assessment Summary Assessment Pt has normal neck strength, but notable forward head with numbness/tingling when over- correcting posture. Pt symptoms not worsening with sleeping now. Pt has adusted his pillow suport to help eliminate shoulder pain with sleeping. Pt has L shoulder pain when reaching behind to grab covers; therefore probable RC dysfunction due to forward shoulder posturing. Physical Therapy Plan Frequency and Duration Frequency of Treatment 2x/Week Plan of Care Start Date 10/22/22 Plan of Care End Date 12/25/22 Next Visit Focus/Plan Next Note Type Treatment Note Next Visit Plan 2x this week for placement on self care program, then 1x/ week for progression of program to correct posture and UE pain, & rehab RC L>R. Next: Add to HEP: L>R RC and scap stab strengthening and neck elongation with proper head/neck posturing. Pt education/handouts issued for: Use of modalities ( cryotherapy) for pain. Cervical/R shoulder & L neck strengthening for proper head/ neck posturing & cervical stabilization, respectively; head-neck/scapular stabilization/positioning, RC (ER) strengthening. Manual: Thoracic mobilization , ?R shoulder mob Ex: RC, UE neural glides ( progress, fede median as tolerated), neck (rot/SB)/ thoracic (rot/ext) mobility ex 's. Modalities as needed for pain.
--- NOTE | 2022-11-20 13:14 | PT.OTN ---
Current Diagnoses Other specific arthropathies, not elsewhere classified, left shoulder (11/20/22) Postural kyphosis, cervicothoracic region (11/20/22) Muscle weakness (generalized) (11/20/22) Physical Therapy Treatment Note PT-OP-A Visit Information Start: 10/16/22 18:13 Freq: Status: Active Protocol: Document 11/20/22 08:46 LRN (Rec: 11/20/22 09:35 LRN [id number]) Out-Patient Physical Therapy Visit Information Visit Information Visit Type Treatment Note Visit Start Time 08:46 Visit Stop Time 09:30 Total Visit Minutes 44 Visit Number 09/09 Evaluation Information Evaluation Date 10/22/22 Precautions Precautions Hernia surgery 08/2022 left; 1973 right. Hasn't worked out in gym since hernia surgery, but started bench pressing in May and chest AB press/reverse AB press. Pull down, BIceps/ triceps noproblem. Hyperthyroid. PT-OP-B Current Condition Start: 10/16/22 18:13 Freq: Status: Active Protocol: Document 10/22/22 09:33 LRN (Rec: 10/22/22 10:31 LRN [id number]) Current Condition History of Current Condition Onset Date 1 yr ago Current Complaints L shoulder pain. History of Current Condition Insidious onset of L painful shoulder, that he thinks involves the RC. Thinks he first noticed it waking up in the night. Nighttime trying to find a comfortable position is difficult and worsens as the night goes on. Also pulled a tendon on the L lateral elbow and occasionally flares up and causes pain. He also had trouble reaching behind his back in the posterior aspect of the L shoulder. Pt denies any previous injury or trauma to the L shoulder. Turning head to L is uncomfortable and stiff in the neck, but not to the R. Prior Treatments and Tests None Treatment Goals Patient/Caregiver Goals Pt goal is: - to have pain go away at night. - to obtain full L shoulder mobility (no pain with washing parts back counter man over shoulder, and over opp shoulder and drying the back w/L arm overhead, start weedeater with L arm). - kayaking without pain (last time was in February of 2022). Personal Factors Other Personal Factors That May Effect Works FT at home on computer ( Therapy/Recovery 2/3rds to 50% of the time), in sitting, sometimes stands. Doesn't have a standing adjustable desk. PT-OP-C Subjective Start: 10/16/22 18:13 Freq: Status: Active Protocol: Document 11/20/22 08:46 LRN (Rec: 11/20/22 09:35 LRN [id number]) OP-PT Subjective Patient Comments Patient Comments States has noticed if head in poor position his arm will tingle and if he repositions to better posture the tingling goes away. PT-OP-E Functional Tests Start: 10/16/22 18:13 Freq: Status: Active Protocol: Document 10/22/22 09:33 LRN (Rec: 10/22/22 10:31 LRN [id number]) Functional Tests Apley's Scratch Test Action 1- Left 3 above inferior scap angle Action 1- Right 1 above inferior scap angle Action 2- Left 1 above T3 Action 2- Right T3 Action 3- Left T9 Action 3- Right T7 PT-OP-J Posture/Palpation/Skin Start: 10/16/22 18:13 Freq: Status: Active Protocol: Document 10/22/22 09:33 LRN (Rec: 10/22/22 10:31 LRN [id number]) Posture Evaluation Position Standing Head/C-Spine Posture Side Bent Right,Forward Head T-Spine Posture Increased Kyphosis L-Spine Posture Increased Lordosis Shoulder Posture (L) Rounded,(L) Forward Arm Posture (L) Internally Rotated,(R) Internally Rotated Pelvis Posture Neutral Hip Posture (L) Externally Rotated,(R) Externally Rotated Comments Posture Comments Dowagers Hump Palpation Assessment Location Posterior neck Palpation Location C/S Paraspinals Palpation Findings Soft Tissue Tightness, Tenderness L shoulder Palpation Location Posterior acromion process Palpation Findings Tenderness Palpation Details No pain in Supraspinatus, anterior/medial posterior Deltoid, Infraspinatus, Teres Major or Teres Minor. PT-OP-K Range of Motion Start: 10/16/22 18:13 Freq: Status: Active Protocol: Document 10/22/22 09:33 LRN (Rec: 10/22/22 10:31 LRN [id number]) Cervical Spine Range of Motion Cervical Spine Active Degrees Testing Position Sitting Flexion 46 Extension 45 Rotation Left 50 Rotation Right 55 Lateral Flexion Left 28 Lateral Flexion Right 25 Comments Discomfort ~C4-C5 with L rot and R SB. Shoulder Goniometric Range of Motion Shoulder Right Active Shoulder ROM WFL Yes Testing Position Sitting Comments WNL Left Active Shoulder ROM WFL No Testing Position Sitting Comments WNL with painful arc at 90 deg 's AB. PT-OP-L Special Tests Start: 10/16/22 18:13 Freq: Status: Active Protocol: Document 11/12/22 10:32 LRN (Rec: 11/12/22 11:24 LRN [id number]) Special Tests Cervical Spine Special Tests Vertebral Artery Test Results - bilaterally Comments head to L caused L neck pain and numbness/tingling down arm . Neural Special Tests- Upper Body Median Nerve Tension Test Results + L>R Comments Forearm tension. Radial Nerve Tension Test Results Slight tension Left, - right Ulnar Nerve Tension Test Results + left, - right PT-OP-M Strength Start: 10/16/22 18:13 Freq: Status: Active Protocol: Document 10/22/22 09:33 LRN (Rec: 10/22/22 10:31 LRN [id number]) Shoulder Strength Shoulder Manual Muscle Testing Right Comments All major ms groups are 5/5. Left External Rotation 4- Good- Comments Pain with shoulder ER Elbow/Forearm Strength Elbow and Forearm Manual Muscle Testing Right Comments All major ms groups are 5/5. Left Comments All major ms groups are 5/5. Hand Intensive Care Unit Registered Nurse/Pinch Strength Hand Dominance Hand Dominance Left PT-OP-Q Treatments Start: 10/16/22 18:13 Freq: Status: Active Protocol: Document 11/20/22 08:46 LRN (Rec: 11/20/22 09:35 LRN [id number]) Cardio Equipment Upper Body Ergometer (UBE) Duration (Minutes) 9 RPM 100 Height 3 Therapeutic Exercises Sidelying Exercises IR stretch Sidelying Exercise Name Sleeper stretch - arm 45 and 90 deg angle Side left Reps/Minutes 5'' Comments Extra time taken to determine best position and max tolerated stretch. Standing Exercises Marion Shldr IR Standing Exercise Name Marion shdr IR strengthening - Belly press Side left Reps/Minutes 10x w/instructions to hold 5- 10 secs Shoulder ER strengthening Standing Exercise Name Shoulder ER strengthening ( Pain with left side) Side right Equipment Used Blue TB, Lev 4 Reps/Minutes 15x Comments ER strengthenig with IUE -15x Shoulder IR strengthening Standing Exercise Name Shoulder IR strengthening Side left Equipment Used Blue TB, Lev 4 Reps/Minutes 15x Comments IR strengthenig with RUE -15x Other Exercises Postural awareness training Other Exercise Name Postural awareness training ( standing, stand on CHRISTEN, agst wall Reps/Minutes 14' Manual Therapy Treatment Joint Mobilizations L shoulder Joint L GHJ Direction Posterior Grade II Body Position Supine Reps/Duration 3' Comments No pain. Self-Care/Home Management Treatment Education Patient Education Home Exercise Program Other Education Verbal review of proper standing posture, with emphasis on head over shoulders and ribs over pelvis . Multiple reminders throughout therapy of ribs over pelvis posturing. Activities Self-Care/Home Management Activities Issued & reviewed HEP: Shoulder IR stretch (Sleeper stretch), & Marion L shoulder IR strengthening (belly press). PT-OP-T Assessment and Plan Start: 10/16/22 18:13 Freq: Status: Active Protocol: Document 11/20/22 08:46 LRN (Rec: 11/20/22 09:35 LRN [id number]) Physical Therapy Assessment Goals Four Impairment Decreased function. Impairment UE Quickdash score is 29, (20- 39% impaired, score 20-39) [facility] Goal (LTG) Pt will be able to start weedeater with L arm and kayak for short distance without pain (last time kayaked was February of 2022). LTG Duration 12/25/22 Three Impairment Decrease L scapular stabilizer strength w/poor scapulohumeral rhythm Impairment Pt shows dysfunctional L scapulohumeral rhythm at 90 deg's AB and on return from max AB. Short Term Goal (STG) Pt demonstrates normal L scapulohumeral rhythm with shoulder AB. STG Duration 11/19/22 [facility] Goal (LTG) Strengthen L shoulder to eliminate L shoulder pain at night. LTG Duration 12/25/22 Two Impairment Decreased L shoulder mobility Short Term Goal (STG) Pt will demonstrate symmetry with L shoulder mobility minimal to no discomfort. STG Duration 11/19/22 [facility] Goal (LTG) No pain with washing his back when placing L hand over the same and opp shoulder, and drying the back w the L arm overhead. LTG Duration 12/25/22 One Impairment Lacks appropriate self care HEP Short Term Goal (STG) Educate in proper sitting/ standing posture/ 11/16/22: Pt educated in proper sitting and standing posture with HO's issued. STG Duration 11/06/22 (11/16/22: MET GOAL) [employer] Tr[employer] Worker Goal (LTG) Pt will be independent in a self care progressive strengthening program for the neck/L shoulder-scapula. 11/16/22: HEP: Scap depression and standing/ sidelie depression/retraction. 11/20/22: HEP: Sleeper stretch, Marion L shoulder IR- belly press. LTG Duration 12/25/22 progressed 11/20/22 Assessment Summary Assessment Pt has gained improved awareness of proper neck/ shoulder posturing with training and use of CHRISTEN and wall. Pt modifies posture by rib cage extending over hips when upper thoracic spine positioning is corrected. He appears to have a good understanding of HEP issued today, although review is probably needed. Physical Therapy Plan Frequency and Duration Frequency of Treatment 2x/Week Plan of Care Start Date 10/22/22 Plan of Care End Date 12/25/22 Next Visit Focus/Plan Next Note Type Treatment Note Next Visit Plan 1x/week for progression of program to correct posture and UE pain, & RC L>R rehab ( improve L shoulder IR mobility /scap stab and strength. Review issued L shoulder ex's. Next: Add to HEP: L>R RC and scap stab strengthening and neck elongation with proper head/neck posturing. Pt education/handouts issued for: Use of modalities ( cryotherapy) for pain. Cervical/R shoulder & L neck strengthening for proper head/ neck posturing & cervical stabilization, respectively; head-neck/scapular stabilization/positioning, RC (ER) strengthening. Manual: Thoracic mobilization , jacobo shoulder mob (posterior and assess inferior glide) Ex: RC, UE neural glides ( progress, fede median as tolerated), neck (rot/SB)/ thoracic (rot/ext) mobility ex 's. Posture: head over shoulders and ribs over pelvis. Modalities as needed for pain.
--- NOTE | 2022-11-27 16:39 | PT.OTN ---
Current Diagnoses Other specific arthropathies, not elsewhere classified, left shoulder (11/27/22) Postural kyphosis, cervicothoracic region (11/27/22) Muscle weakness (generalized) (11/27/22) Physical Therapy Treatment Note PT-OP-A Visit Information Start: 10/16/22 18:13 Freq: Status: Active Protocol: Document 11/27/22 10:34 LRN (Rec: 11/27/22 12:12 LRN [id number]) Out-Patient Physical Therapy Visit Information Visit Information Visit Type Treatment Note Visit Start Time 10:34 Visit Stop Time 11:18 Total Visit Minutes 44 Visit Number 10/09 Evaluation Information Evaluation Date 10/22/22 Precautions Precautions Hernia surgery 08/2022 left; 1973 right. Hasn't worked out in gym since hernia surgery, but started bench pressing in May and chest AB press/reverse AB press. Pull down, BIceps/ triceps noproblem. Hyperthyroid. PT-OP-B Current Condition Start: 10/16/22 18:13 Freq: Status: Active Protocol: Document 10/22/22 09:33 LRN (Rec: 10/22/22 10:31 LRN [id number]) Current Condition History of Current Condition Onset Date 1 yr ago Current Complaints L shoulder pain. History of Current Condition Insidious onset of L painful shoulder, that he thinks involves the RC. Thinks he first noticed it waking up in the night. Nighttime trying to find a comfortable position is difficult and worsens as the night goes on. Also pulled a tendon on the L lateral elbow and occasionally flares up and causes pain. He also had trouble reaching behind his back in the posterior aspect of the L shoulder. Pt denies any previous injury or trauma to the L shoulder. Turning head to L is uncomfortable and stiff in the neck, but not to the R. Prior Treatments and Tests None Treatment Goals Patient/Caregiver Goals Pt goal is: - to have pain go away at night. - to obtain full L shoulder mobility (no pain with washing backbreaker over shoulder, and over opp shoulder and drying the back w/L arm overhead, start weedeater with L arm). - kayaking without pain (last time was in February of 2022). Personal Factors Other Personal Factors That May Effect Works FT at home on computer ( Therapy/Recovery 2/3rds to 50% of the time), in sitting, sometimes stands. Doesn't have a standing adjustable desk. PT-OP-C Subjective Start: 10/16/22 18:13 Freq: Status: Active Protocol: Document 11/27/22 10:34 LRN (Rec: 11/27/22 12:12 LRN [id number]) OP-PT Subjective Patient Comments Patient Comments Sleeping many nights is painful only on the L shoulder . Waking up in morning is very painful. Get up and in 5 -10 minutes is painfree. Taking shirt on or off causes L shoulder pain if raising the L arm. PT-OP-E Functional Tests Start: 10/16/22 18:13 Freq: Status: Active Protocol: Document 10/22/22 09:33 LRN (Rec: 10/22/22 10:31 LRN [id number]) Functional Tests Apley's Scratch Test Action 1- Left 3 above inferior scap angle Action 1- Right 1 above inferior scap angle Action 2- Left 1 above T3 Action 2- Right T3 Action 3- Left T9 Action 3- Right T7 PT-OP-J Posture/Palpation/Skin Start: 10/16/22 18:13 Freq: Status: Active Protocol: Document 10/22/22 09:33 LRN (Rec: 10/22/22 10:31 LRN [id number]) Posture Evaluation Position Standing Head/C-Spine Posture Side Bent Right,Forward Head T-Spine Posture Increased Kyphosis L-Spine Posture Increased Lordosis Shoulder Posture (L) Rounded,(L) Forward Arm Posture (L) Internally Rotated,(R) Internally Rotated Pelvis Posture Neutral Hip Posture (L) Externally Rotated,(R) Externally Rotated Comments Posture Comments Dowagers Hump Palpation Assessment Location Posterior neck Palpation Location C/S Paraspinals Palpation Findings Soft Tissue Tightness, Tenderness L shoulder Palpation Location Posterior acromion process Palpation Findings Tenderness Palpation Details No pain in Supraspinatus, anterior/medial posterior Deltoid, Infraspinatus, Teres Major or Teres Minor. PT-OP-K Range of Motion Start: 10/16/22 18:13 Freq: Status: Active Protocol: Document 11/27/22 10:34 LRN (Rec: 11/27/22 12:12 LRN [id number]) Cervical Spine Range of Motion Cervical Spine Active Degrees Testing Position Sitting Lateral Flexion Left 35 Lateral Flexion Right 35 PT-OP-L Special Tests Start: 10/16/22 18:13 Freq: Status: Active Protocol: Document 11/12/22 10:32 LRN (Rec: 11/12/22 11:24 LRN [id number]) Special Tests Cervical Spine Special Tests Vertebral Artery Test Results - bilaterally Comments head to L caused L neck pain and numbness/tingling down arm . Neural Special Tests- Upper Body Median Nerve Tension Test Results + L>R Comments Forearm tension. Radial Nerve Tension Test Results Slight tension Left, - right Ulnar Nerve Tension Test Results + left, - right PT-OP-M Strength Start: 10/16/22 18:13 Freq: Status: Active Protocol: Document 11/27/22 10:34 LRN (Rec: 11/27/22 12:12 LRN [id number]) Cervical Spine Strength Cervical Spine Manual Muscle Testing Testing Position Sitting Comments All strength is 5/5. PT-OP-Q Treatments Start: 10/16/22 18:13 Freq: Status: Active Protocol: Document 11/27/22 10:34 LRN (Rec: 11/27/22 12:12 LRN [id number]) Cardio Equipment Upper Body Ergometer (UBE) Duration (Minutes) 10 RPM 90 Seat Position 9 Height 3 Therapeutic Exercises Supine Exercises Neck elongation Supine Exercise Name Neck Elongation Reps/Minutes 3 breaths hold x 10 Comments Cuing to slow ex and not force movement Sitting Exercises C. Isometric holds Sitting Exercise Name C. Marion holds Side bilateral Reps/Minutes 2' Comments MMT taken C. AROM Sitting Exercise Name Rot, SB, Ext Side bilateral Comments Sore L neck w/L rot & R SB. ROM taken. Standing Exercises Shoulder ER strengthening Standing Exercise Name Shoulder ER strengthening ( Pain with left side) Side right Equipment Used Blue TB, Lev 4 Reps/Minutes 15x Comments ER strengthenig w/neck elongation dec's L shldr pain. Shoulder IR strengthening Standing Exercise Name Shoulder IR strengthening-good posture to start Side bilateral Equipment Used Blue TB, Lev 4 Reps/Minutes 15x Comments IR strengthenig with RUE -15x Other Exercises Postural awareness training Other Exercise Name Postural awareness training ( standing, stand on CHRISTEN, agst wall Reps/Minutes 25' Comments L shldr: depression, retraction, shldr rolls, chin tuck, TA PT-OP-T Assessment and Plan Start: 10/16/22 18:13 Freq: Status: Active Protocol: Document 11/27/22 10:34 LRN (Rec: 11/27/22 12:12 LRN [id number]) Physical Therapy Assessment Goals Four Impairment Decreased function. Impairment UE Quickdash score is 29, (20- 39% impaired, score 20-39) Clinical Data Research Goal (LTG) Pt will be able to start weedeater with L arm and kayak for short distance without pain (last time kayaked was February of 2022). LTG Duration 12/25/22 Three Impairment Decrease L scapular stabilizer strength w/poor scapulohumeral rhythm Impairment Pt shows dysfunctional L scapulohumeral rhythm at 90 deg's AB and on return from max AB. Short Term Goal (STG) Pt demonstrates normal L scapulohumeral rhythm with shoulder AB. STG Duration 11/19/22 [facility] Goal (LTG) Strengthen L shoulder to eliminate L shoulder pain at night. LTG Duration 12/25/22 Two Impairment Decreased L shoulder mobility Short Term Goal (STG) Pt will demonstrate symmetry with L shoulder mobility minimal to no discomfort. STG Duration 11/19/22 [facility] Goal (LTG) No pain with washing his back when placing L hand over the same and opp shoulder, and drying the back w the L arm overhead. LTG Duration 12/25/22 One Impairment Lacks appropriate self care HEP Short Term Goal (STG) Educate in proper sitting/ standing posture/ 11/16/22: Pt educated in proper sitting and standing posture with HO's issued. STG Duration 11/06/22 (11/16/22: MET GOAL) Clinical Data Research Goal (LTG) Pt will be independent in a self care progressive strengthening program for the neck/L shoulder-scapula. 11/16/22: HEP: Scap depression and standing/ sidelie depression/retraction. 11/20/22: HEP: Sleeper stretch, Marion L shoulder IR- belly press. LTG Duration 12/25/22 progressed 11/20/22 Assessment Summary Assessment Pt posture appears much improved, with ears more closely positioned over shoulders. L shoulder painful arc is 45-90 deg's, minimal pain arc 90-180 deg's AB. Pt able to reduce L shoulder pain with shoulder ER /IR ROM and strengthening with further retractioni of chin; therefore L shoulder pain appears to be mostly cervical and postural related. Pt tends to elevate L shoulder with exercises. Neck in sleeping might be R SB because the L side feels tight to pt. Pt to get spouse to see neck positioning while he sleeps Physical Therapy Plan Frequency and Duration Frequency of Treatment 2x/Week Plan of Care Start Date 10/22/22 Plan of Care End Date 12/25/22 Next Visit Focus/Plan Next Note Type Treatment Note Next Visit Plan 1x/week for progression of program to correct posture and UE pain. RC L>R rehab (improve L shoulder IR mobility/scap stab and strength). Add subscapularis strengthening with added focus on head/neck positioning. Review issued L shoulder ex's. Next: Add to HEP: L>R RC and scap stab strengthening and neck elongation with proper head/neck posturing. `Pt education/handouts issued for: Use of modalities ( cryotherapy) for pain. Cervical/R shoulder & L neck strengthening for proper head/ neck posturing & cervical stabilization, respectively; head-neck/scapular stabilization/positioning, RC (ER) strengthening. Manual: Thoracic mobilization , jacobo shoulder mob (posterior and assess inferior glide) Ex: RC, UE neural glides ( progress, fede median as tolerated), neck (rot/SB)/ thoracic (rot/ext) mobility ex 's. Posture: head over shoulders and ribs over pelvis. Modalities as needed for pain.
--- NOTE | 2022-12-03 17:38 | PT.OTN ---
Current Diagnoses Other specific arthropathies, not elsewhere classified, left shoulder (12/03/22) Postural kyphosis, cervicothoracic region (12/03/22) Muscle weakness (generalized) (12/03/22) Physical Therapy Treatment Note PT-OP-A Visit Information Start: 10/16/22 18:13 Freq: Status: Active Protocol: Document 12/03/22 12:35 LRN (Rec: 12/03/22 13:23 LRN [id number]) Out-Patient Physical Therapy Visit Information Visit Information Visit Type Treatment Note Visit Start Time 10:35 Visit Stop Time 13:17 Total Visit Minutes 42 Visit Number 11/09 Evaluation Information Evaluation Date 10/22/22 Precautions Precautions Hernia surgery 08/2022 left; 1973 right. Hasn't worked out in gym since hernia surgery, but started bench pressing in May and chest AB press/reverse AB press. Pull down, BIceps/ triceps noproblem. Hyperthyroid. PT-OP-B Current Condition Start: 10/16/22 18:13 Freq: Status: Active Protocol: Document 10/22/22 09:33 LRN (Rec: 10/22/22 10:31 LRN [id number]) Current Condition History of Current Condition Onset Date 1 yr ago Current Complaints L shoulder pain. History of Current Condition Insidious onset of L painful shoulder, that he thinks involves the RC. Thinks he first noticed it waking up in the night. Nighttime trying to find a comfortable position is difficult and worsens as the night goes on. Also pulled a tendon on the L lateral elbow and occasionally flares up and causes pain. He also had trouble reaching behind his back in the posterior aspect of the L shoulder. Pt denies any previous injury or trauma to the L shoulder. Turning head to L is uncomfortable and stiff in the neck, but not to the R. Prior Treatments and Tests None Treatment Goals Patient/Caregiver Goals Pt goal is: - to have pain go away at night. - to obtain full L shoulder mobility (no pain with washing quarter backer over shoulder, and over opp shoulder and drying the back w/L arm overhead, start weedeater with L arm). - kayaking without pain (last time was in February of 2022). Personal Factors Other Personal Factors That May Effect Works FT at home on computer ( Therapy/Recovery 2/3rds to 50% of the time), in sitting, sometimes stands. Doesn't have a standing adjustable desk. PT-OP-C Subjective Start: 10/16/22 18:13 Freq: Status: Active Protocol: Document 12/03/22 12:35 LRN (Rec: 12/03/22 13:23 LRN [id number]) OP-PT Subjective Patient Comments Patient Comments Sleeping better because has adjusted his posture in bed, and using less meds. PT-OP-E Functional Tests Start: 10/16/22 18:13 Freq: Status: Active Protocol: Document 10/22/22 09:33 LRN (Rec: 10/22/22 10:31 LRN [id number]) Functional Tests Apley's Scratch Test Action 1- Left 3 above inferior scap angle Action 1- Right 1 above inferior scap angle Action 2- Left 1 above T3 Action 2- Right T3 Action 3- Left T9 Action 3- Right T7 PT-OP-J Posture/Palpation/Skin Start: 10/16/22 18:13 Freq: Status: Active Protocol: Document 10/22/22 09:33 LRN (Rec: 10/22/22 10:31 LRN [id number]) Posture Evaluation Position Standing Head/C-Spine Posture Side Bent Right,Forward Head T-Spine Posture Increased Kyphosis L-Spine Posture Increased Lordosis Shoulder Posture (L) Rounded,(L) Forward Arm Posture (L) Internally Rotated,(R) Internally Rotated Pelvis Posture Neutral Hip Posture (L) Externally Rotated,(R) Externally Rotated Comments Posture Comments Dowagers Hump Palpation Assessment Location Posterior neck Palpation Location C/S Paraspinals Palpation Findings Soft Tissue Tightness, Tenderness L shoulder Palpation Location Posterior acromion process Palpation Findings Tenderness Palpation Details No pain in Supraspinatus, anterior/medial posterior Deltoid, Infraspinatus, Teres Major or Teres Minor. PT-OP-K Range of Motion Start: 10/16/22 18:13 Freq: Status: Active Protocol: Document 11/27/22 10:34 LRN (Rec: 11/27/22 12:12 LRN [id number]) Cervical Spine Range of Motion Cervical Spine Active Degrees Testing Position Sitting Lateral Flexion Left 35 Lateral Flexion Right 35 PT-OP-L Special Tests Start: 10/16/22 18:13 Freq: Status: Active Protocol: Document 11/12/22 10:32 LRN (Rec: 11/12/22 11:24 LRN [id number]) Special Tests Cervical Spine Special Tests Vertebral Artery Test Results - bilaterally Comments head to L caused L neck pain and numbness/tingling down arm . Neural Special Tests- Upper Body Median Nerve Tension Test Results + L>R Comments Forearm tension. Radial Nerve Tension Test Results Slight tension Left, - right Ulnar Nerve Tension Test Results + left, - right PT-OP-M Strength Start: 10/16/22 18:13 Freq: Status: Active Protocol: Document 11/27/22 10:34 LRN (Rec: 11/27/22 12:12 LRN [id number]) Cervical Spine Strength Cervical Spine Manual Muscle Testing Testing Position Sitting Comments All strength is 5/5. PT-OP-Q Treatments Start: 10/16/22 18:13 Freq: Status: Active Protocol: Document 12/03/22 12:35 LRN (Rec: 12/03/22 13:23 LRN [id number]) Therapeutic Exercises Supine Exercises Scap protraction Supine Exercise Name Scap protractio, L>R Side bilateral Equipment Used 4# Reps/Minutes 5 SH x 10 Comments Extra time for training of proper form and mvmt Serratus Wall slide Supine Exercise Name Serratus wall slide-scap protract/forearm wall slide Equipment Used Lev 2 TB Reps/Minutes 10x Comments Extra time for training. Standing Exercises Shoulder ER strengthening Standing Exercise Name Shoulder ER strengthening ( Pain with left side) Side right Equipment Used Blue TB, Lev 4 Reps/Minutes 15x Comments ER strengthenig w/neck elongation dec's L shldr pain. Shoulder IR strengthening Standing Exercise Name Shoulder IR strengthening-good posture to start Side bilateral Equipment Used Blue TB, Lev 4 Reps/Minutes 15x Comments IR strengthenig with RUE -15x Manual Therapy Treatment Manual Traction Cervical Details Angle: 30 deg's flexed Body Position Supine Reps/Duration 3' Comments Decrease pain of L shoulder with active shoulder AB. Nerve Glides Radial n glide Nerve Radial Details Standing and supine: elbow ext with shldr depressed, ER'd, forearm supinate Body Position Supine Reps/Duration 12' Comments Pain with wrist ext while looking away from hand. Self-Care/Home Management Treatment Education Patient Education Home Exercise Program Activities Self-Care/Home Management Activities Issued & reviewed HEP: Serratus wall slide & scapular protraction in supine (serruatus punch). PT-OP-T Assessment and Plan Start: 10/16/22 18:13 Freq: Status: Active Protocol: Document 12/03/22 12:35 LRN (Rec: 12/03/22 13:23 LRN [id number]) Physical Therapy Assessment Goals Four Impairment Decreased function. Impairment UE Quickdash score is 29, (20- 39% impaired, score 20-39) Intermediate Goal (LTG) Pt will be able to start weedeater with L arm and kayak for short distance without pain (last time kayaked was February of 2022). LTG Duration 12/25/22 Three Impairment Decrease L scapular stabilizer strength w/poor scapulohumeral rhythm Impairment Pt shows dysfunctional L scapulohumeral rhythm at 90 deg's AB and on return from max AB. Short Term Goal (STG) Pt demonstrates normal L scapulohumeral rhythm with shoulder AB. 12/03/22: Painful arc 40-90 deg 's. STG Duration 11/19/22 Intermediate Goal (LTG) Strengthen L shoulder to eliminate L shoulder pain at night. 12/03/22: Reports sleeping better and less meds at night needed. LTG Duration 12/25/22 progressing 12/03/22 Two Impairment Decreased L shoulder mobility Short Term Goal (STG) Pt will demonstrate symmetry with L shoulder mobility minimal to no discomfort. STG Duration 11/19/22 Intermediate Goal (LTG) No pain with washing his back when placing L hand over the same and opp shoulder, and drying the back w the L arm overhead. 12/03/22: Pain with removing jacket. LTG Duration 12/25/22 One Impairment Lacks appropriate self care HEP Short Term Goal (STG) Educate in proper sitting/ standing posture/ 11/16/22: Pt educated in proper sitting and standing posture with HO's issued. STG Duration 11/06/22 (11/16/22: MET GOAL) Awning Erector Goal (LTG) Pt will be independent in a self care progressive strengthening program for the neck/L shoulder-scapula. 11/16/22: HEP: Scap depression and standing/ sidelie depression/retraction. 11/20/22: HEP: Sleeper stretch, Marion L shoulder IR- belly press. 12/03/22: HEP: Serratus wall slide, sup scapular protraction (serratus punch). LTG Duration 12/25/22 progressed 12/03/22 Assessment Summary Assessment Improved tolerance to sleeping with head/neck posture improving. Pt L subscapularis is very tight, & he demonstates + L radial tension test in standing and with stretching. Able to improve L shoulder mobility with shldr/ elbow 90/90, moving into elbow ext from 90 to ~130 deg's. Painful with L shoulder ER actively but not passively, and shoulder painful arc ~40- 90 deg's AB; therefore he appears to have muscular involvement of L RC as well as UE neural involvement (+ radial tension test). 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 Physical Therapy Plan Frequency and Duration Frequency of Treatment 2x/Week Plan of Care Start Date 10/22/22 Plan of Care End Date 12/25/22 Next Visit Focus/Plan Next Note Type Treatment Note Next Visit Plan 1x/week for progression of program to correct posture and UE pain. Review Serratus wall slide and sidelie subscap stretch and sleeper stretch. Add subscap ex's and radial n glides. RC L>R rehab (improve L shoulder IR mobility/scap stab and strength). Add subscapularis strengthening with added focus on head/neck positioning. Review issued L shoulder ex's. Next: Add to HEP: L>R RC and scap stab strengthening and neck elongation with proper head/neck posturing. Pt education/handouts issued for: Use of modalities ( cryotherapy) for pain. Cervical/R shoulder & L neck strengthening for proper head/ neck posturing & cervical stabilization, respectively; head-neck/scapular stabilization/positioning, RC (ER) strengthening. Manual: Thoracic mobilization , jacobo shoulder mob (posterior and assess inferior glide) Ex: RC, UE neural glides ( progress, fede median as tolerated), neck (rot/SB)/ thoracic (rot/ext) mobility ex 's. Posture: head over shoulders and ribs over pelvis. Modalities as needed for pain.
--- NOTE | 2022-12-11 16:15 | PT.OTN ---
Current Diagnoses Other specific arthropathies, not elsewhere classified, left shoulder (12/11/22) Postural kyphosis, cervicothoracic region (12/11/22) Muscle weakness (generalized) (12/11/22) Physical Therapy Treatment Note PT-OP-A Visit Information Start: 10/16/22 18:13 Freq: Status: Active Protocol: Document 12/11/22 15:00 LRN (Rec: 12/11/22 16:14 LRN [id number]) Out-Patient Physical Therapy Visit Information Visit Information Visit Type Treatment Note Visit Start Time 15:00 Visit Stop Time 15:51 Total Visit Minutes 51 Visit Number 12/09 Evaluation Information Evaluation Date 10/22/22 Precautions Precautions Hernia surgery 08/2022 left; 1973 right. Hasn't worked out in gym since hernia surgery, but started bench pressing in May and chest AB press/reverse AB press. Pull down, BIceps/ triceps noproblem. Hyperthyroid. PT-OP-B Current Condition Start: 10/16/22 18:13 Freq: Status: Active Protocol: Document 10/22/22 09:33 LRN (Rec: 10/22/22 10:31 LRN [id number]) Current Condition History of Current Condition Onset Date 1 yr ago Current Complaints L shoulder pain. History of Current Condition Insidious onset of L painful shoulder, that he thinks involves the RC. Thinks he first noticed it waking up in the night. Nighttime trying to find a comfortable position is difficult and worsens as the night goes on. Also pulled a tendon on the L lateral elbow and occasionally flares up and causes pain. He also had trouble reaching behind his back in the posterior aspect of the L shoulder. Pt denies any previous injury or trauma to the L shoulder. Turning head to L is uncomfortable and stiff in the neck, but not to the R. Prior Treatments and Tests None Treatment Goals Patient/Caregiver Goals Pt goal is: - to have pain go away at night. - to obtain full L shoulder mobility (no pain with washing rotoformer backtender over shoulder, and over opp shoulder and drying the back w/L arm overhead, start weedeater with L arm). - kayaking without pain (last time was in February of 2022). Personal Factors Other Personal Factors That May Effect Works FT at home on computer ( Therapy/Recovery 2/3rds to 50% of the time), in sitting, sometimes stands. Doesn't have a standing adjustable desk. PT-OP-C Subjective Start: 10/16/22 18:13 Freq: Status: Active Protocol: Document 12/11/22 15:00 LRN (Rec: 12/11/22 16:14 LRN [id number]) OP-PT Subjective Patient Comments Patient Comments States he thinks the neck ROM ex's has helped the most with his abiltiy to sleep at night because his neck mobtion is improving and not as stiff. Cans sleep 4 hrs at a time. Still pain taking coat off. Very few times, having pain laying supine, subsided 100% . Pain pulling up sheets is decreased 50% pain. PT-OP-E Functional Tests Start: 10/16/22 18:13 Freq: Status: Active Protocol: Document 10/22/22 09:33 LRN (Rec: 10/22/22 10:31 LRN [id number]) Functional Tests Apley's Scratch Test Action 1- Left 3 above inferior scap angle Action 1- Right 1 above inferior scap angle Action 2- Left 1 above T3 Action 2- Right T3 Action 3- Left T9 Action 3- Right T7 PT-OP-J Posture/Palpation/Skin Start: 10/16/22 18:13 Freq: Status: Active Protocol: Document 10/22/22 09:33 LRN (Rec: 10/22/22 10:31 LRN [id number]) Posture Evaluation Position Standing Head/C-Spine Posture Side Bent Right,Forward Head T-Spine Posture Increased Kyphosis L-Spine Posture Increased Lordosis Shoulder Posture (L) Rounded,(L) Forward Arm Posture (L) Internally Rotated,(R) Internally Rotated Pelvis Posture Neutral Hip Posture (L) Externally Rotated,(R) Externally Rotated Comments Posture Comments Dowagers Hump Palpation Assessment Location Posterior neck Palpation Location C/S Paraspinals Palpation Findings Soft Tissue Tightness, Tenderness L shoulder Palpation Location Posterior acromion process Palpation Findings Tenderness Palpation Details No pain in Supraspinatus, anterior/medial posterior Deltoid, Infraspinatus, Teres Major or Teres Minor. PT-OP-K Range of Motion Start: 10/16/22 18:13 Freq: Status: Active Protocol: Document 11/27/22 10:34 LRN (Rec: 11/27/22 12:12 LRN [id number]) Cervical Spine Range of Motion Cervical Spine Active Degrees Testing Position Sitting Lateral Flexion Left 35 Lateral Flexion Right 35 PT-OP-L Special Tests Start: 10/16/22 18:13 Freq: Status: Active Protocol: Document 11/12/22 10:32 LRN (Rec: 11/12/22 11:24 LRN [id number]) Special Tests Cervical Spine Special Tests Vertebral Artery Test Results - bilaterally Comments head to L caused L neck pain and numbness/tingling down arm . Neural Special Tests- Upper Body Median Nerve Tension Test Results + L>R Comments Forearm tension. Radial Nerve Tension Test Results Slight tension Left, - right Ulnar Nerve Tension Test Results + left, - right PT-OP-M Strength Start: 10/16/22 18:13 Freq: Status: Active Protocol: Document 11/27/22 10:34 LRN (Rec: 11/27/22 12:12 LRN [id number]) Cervical Spine Strength Cervical Spine Manual Muscle Testing Testing Position Sitting Comments All strength is 5/5. PT-OP-Q Treatments Start: 10/16/22 18:13 Freq: Status: Active Protocol: Document 12/11/22 15:00 LRN (Rec: 12/11/22 16:14 LRN [id number]) Therapeutic Exercises Supine Exercises Scap protraction Supine Exercise Name Scap protractio, L>R Side bilateral Equipment Used 4# Reps/Minutes 3' Comments Cuing to not engage UT's Serratus Wall slide Supine Exercise Name Standing: Serratus wall slide -scap protract/forearm wall slide Equipment Used Lev 3 TB Reps/Minutes 15x Comments Extra time for training. Sitting Exercises C. AROM Sitting Exercise Name Rot, SB, Ext: Active and with MWM (towel lift at C4,C5, C6 L facet) Side bilateral Reps/Minutes 8' Comments Sore L neck w/L rot & R SB. ROM taken. Standing Exercises Subscap strengthening Standing Exercise Name Hand lift off back Side left Reps/Minutes 15x 2 Shoulder ER strengthening Standing Exercise Name Shoulder ER strengthening ( Pain with left side) Side right Equipment Used [place] TB, Lev 3 Reps/Minutes 15x 2 Comments ER strengthenig w/neck elongation dec's L shldr pain. Shoulder IR strengthening Standing Exercise Name Hand to belly press Equipment Used Lev 2 TBand Reps/Minutes 15x 2 Shoulder Ext Standing Exercise Name Lat pull down Equipment Used Lev 3 TB Reps/Minutes 15x 2 Comments Cuing for scap depression/ retraction, chin tuck Other Exercises Postural awareness training Other Exercise Name Postural awareness training ( standing, stand on CHRISTEN, agst wall Reps/Minutes 2' Comments L shldr: depression, retraction, chin tuck Manual Therapy Treatment Soft Tissue Mobilization L Paraspinals Body Location L C/S paraspinals Mobilization Type Strumming,Sustained Pressure, Trigger Point Release Intensity/Depth Moderate>deep Body Position Supine Manual Traction Cervical Details Angle: 30 deg's flexed Body Position Supine Reps/Duration 10'' Comments Decrease pain of L shoulder with active shoulder AB. Self-Care/Home Management Treatment Education Other Education Discussed at length POC with pt leaving area in middle of December and POC until end of November. Discussed assessment of pt having impingement pain L shoulder with shoulder circles and discussed possible further imaging. Activities Self-Care/Home Management Activities Issued & reviewed HEP: Subscapularis strengthening ex (hand press to belly and hand lift off back). Reviewed HEP of active Cervical ROM/stretch: SB, Rot, [place]. PT-OP-T Assessment and Plan Start: 10/16/22 18:13 Freq: Status: Active Protocol: Document 12/11/22 15:00 LRN (Rec: 12/11/22 16:14 LRN [id number]) Physical Therapy Assessment Goals Four Impairment Decreased function. Impairment UE Quickdash score is 29, (20- 39% impaired, score 20-39) Half-Way Goal (LTG) Pt will be able to start weedeater with L arm and kayak for short distance without pain (last time kayaked was February of 2022). LTG Duration 12/25/22 Three Impairment Decrease L scapular stabilizer strength w/poor scapulohumeral rhythm Impairment Pt shows dysfunctional L scapulohumeral rhythm at 90 deg's AB and on return from max AB. Short Term Goal (STG) Pt demonstrates normal L scapulohumeral rhythm with shoulder AB. 12/03/22: Painful arc 40-90 deg 's. STG Duration 11/19/22 Half-Way Goal (LTG) Strengthen L shoulder to eliminate L shoulder pain at night. 12/03/22: Reports sleeping better and less meds at night needed. LTG Duration 12/25/22 progressing 7/6/23 Two Impairment Decreased L shoulder mobility Short Term Goal (STG) Pt will demonstrate symmetry with L shoulder mobility minimal to no discomfort. STG Duration 11/19/22 Half-Way Goal (LTG) No pain with washing his back when placing L hand over the same and opp shoulder, and drying the back w the L arm overhead. 12/03/22: Pain with removing jacket. LTG Duration 12/25/22 One Impairment Lacks appropriate self care HEP Short Term Goal (STG) Educate in proper sitting/ standing posture/ 11/16/22: Pt educated in proper sitting and standing posture with HO's issued. STG Duration 11/06/22 (11/16/22: MET GOAL) Half-Way Goal (LTG) Pt will be independent in a self care progressive strengthening program for the neck/L shoulder-scapula. 11/16/22: HEP: Scap depression and standing/ sidelie depression/retraction. 11/20/22: HEP: Sleeper stretch, Marion L shoulder IR- belly press. 12/03/22: HEP: Serratus wall slide, sup scapular protraction (serratus punch). 12/11/22: HEP: Subscapularis strengthening ex (hand press to belly and hand lift off back). Reviewed C. AROM stretch (Rot, SB, Circles). LTG Duration 12/25/22 (12/11/22: MET GOAL ) Assessment Summary Assessment Tightness on the L side of neck (paraspinals). Pain L shoulder ~160 deg's AB when moving arm in [place] [employer]. L shoulder Impingement pain with removing of jacket. Further imaging would be helpful to determine if possible RC tear. Pt has not tightness with Radial n glide . Physical Therapy Plan Frequency and Duration Frequency of Treatment 2x/Week Plan of Care Start Date 10/22/22 Plan of Care End Date 12/25/22 Next Visit Focus/Plan Next Note Type Treatment Note Next Visit Plan Program to correct posture and reduce L shoulder pain. Assess for improvement in ROM w/o pain. If improved discuss cont of pt on HEP, if no change, refer back to referring physician office for new MD and request of imaging for possible RC tear. Review subscap ex, sidelie subscap stretch and sleeper stretch. RC L>R rehab (improve L shoulder IR mobility/scap stab and strength). Focus on head /neck positioning. Next: Add to HEP: L>R TBand RC with proper head/neck posturing and neck elongation. Pt education/handouts issued for: Use of modalities ( cryotherapy) for pain. POC: Strengthening: Cervical/R shoulder & L neck strengthening for proper head/ neck posturing & head-neck/ scapular stabilization/ positioning, & RC (ER) strengthening. Mobility: UE neural glides ( progress, fede median as tolerated), neck (rot/SB)/ thoracic (rot/ext) mobility ex 's. Manual: Thoracic mobilization , jacobo shoulder mob (posterior and assess inferior glide) Posture: head over shoulders and ribs over pelvis. Modalities as needed for pain.
--- NOTE | 2022-12-25 17:05 | PT-OP ANOTE ---
left on pt's phone stating since he canceled his appt today and his POC if further therapy is needed, pt will need to contact the referring physician for new referral. If pt has further questions or concerns he can contact me the first of next week. PT number given. Pt notified of his discharge from therapy.
--- NOTE | 2022-12-31 18:20 | PT-OP ANOTE ---
Per phone conversation, noted that pt is scheduled for 01/08/23 appt, beyond POC date. Recommended pt call to speak to [facility] Physical Therapy Dept Head Toll Gate Tender Cassie ChristinaPT for recommendations of continuation of care (DC vs PN). Pt wanting to be seen for further visits and will call to speak to Cassie Christina next week. I will hold chart open until pt has discussion of continuation of care with Dept Head Toll Gate Tender.
--- NOTE | 2023-01-22 13:02 | PT.OPDS ---
Addendum entered and electronically signed by Ebony Morales, PT 01/22/23 13:02: Sending to referring physician Original Note: Current Diagnoses Other specific arthropathies, not elsewhere classified, left shoulder (12/11/22) Postural kyphosis, cervicothoracic region (12/11/22) Muscle weakness (generalized) (12/11/22) Visit Care Team Role Provider Type Jonah Ramirez MD Attending Provider Physician Family Provider Primary Care Provider Referring Provider Specialty: Internal Medicine Address: [address] [place] [address], [address], [facility] Email: [email or web address] Visit Number Visit Number [id number] Discharge Summary PT-OP-B Current Condition Start: 10/16/22 18:13 Freq: Status: Active Protocol: Document 10/22/22 09:33 LRN (Rec: 10/22/22 10:31 LRN [id number]) Current Condition History of Current Condition Onset Date 1 yr ago Current Complaints L shoulder pain. History of Current Condition Insidious onset of L painful shoulder, that he thinks involves the RC. Thinks he first noticed it waking up in the night. Nighttime trying to find a comfortable position is difficult and worsens as the night goes on. Also pulled a tendon on the L lateral elbow and occasionally flares up and causes pain. He also had trouble reaching behind his back in the posterior aspect of the L shoulder. Pt denies any previous injury or trauma to the L shoulder. Turning head to L is uncomfortable and stiff in the neck, but not to the R. Prior Treatments and Tests None Treatment Goals Patient/Caregiver Goals Pt goal is: - to have pain go away at night. - to obtain full L shoulder mobility (no pain with washing bar back over shoulder, and over opp shoulder and drying the back w/L arm overhead, start weedeater with L arm). - kayaking without pain (last time was in February of 2022). Personal Factors Other Personal Factors That May Effect Works FT at home on computer ( Therapy/Recovery 2/3rds to 50% of the time), in sitting, sometimes stands. Doesn't have a standing adjustable desk. PT-OP-C Subjective Start: 10/16/22 18:13 Freq: Status: Active Protocol: Document 12/11/22 15:00 LRN (Rec: 12/11/22 16:14 LRN [id number]) OP-PT Subjective Patient Comments Patient Comments States he thinks the neck ROM ex's has helped the most with his abiltiy to sleep at night because his neck mobtion is improving and not as stiff. Cans sleep 4 hrs at a time. Still pain taking coat off. Very few times, having pain laying supine, subsided 100% . Pain pulling up sheets is decreased 50% pain. PT-OP-E Functional Tests Start: 10/16/22 18:13 Freq: Status: Active Protocol: Document 10/22/22 09:33 LRN (Rec: 10/22/22 10:31 LRN [id number]) Functional Tests Apley's Scratch Test Action 1- Left 3 above inferior scap angle Action 1- Right 1 above inferior scap angle Action 2- Left 1 above T3 Action 2- Right T3 Action 3- Left T9 Action 3- Right T7 PT-OP-J Posture/Palpation/Skin Start: 10/16/22 18:13 Freq: Status: Active Protocol: Document 10/22/22 09:33 LRN (Rec: 10/22/22 10:31 LRN [id number]) Posture Evaluation Position Standing Head/C-Spine Posture Side Bent Right,Forward Head T-Spine Posture Increased Kyphosis L-Spine Posture Increased Lordosis Shoulder Posture (L) Rounded,(L) Forward Arm Posture (L) Internally Rotated,(R) Internally Rotated Pelvis Posture Neutral Hip Posture (L) Externally Rotated,(R) Externally Rotated Comments Posture Comments Dowagers Hump Palpation Assessment Location Posterior neck Palpation Location C/S Paraspinals Palpation Findings Soft Tissue Tightness, Tenderness L shoulder Palpation Location Posterior acromion process Palpation Findings Tenderness Palpation Details No pain in Supraspinatus, anterior/medial posterior Deltoid, Infraspinatus, Teres Major or Teres Minor. PT-OP-K Range of Motion Start: 10/16/22 18:13 Freq: Status: Active Protocol: Document 11/27/22 10:34 LRN (Rec: 11/27/22 12:12 LRN [id number]) Cervical Spine Range of Motion Cervical Spine Active Degrees Testing Position Sitting Lateral Flexion Left 35 Lateral Flexion Right 35 PT-OP-L Special Tests Start: 10/16/22 18:13 Freq: Status: Active Protocol: Document 11/12/22 10:32 LRN (Rec: 11/12/22 11:24 LRN [id number]) Special Tests Cervical Spine Special Tests Vertebral Artery Test Results - bilaterally Comments head to L caused L neck pain and numbness/tingling down arm . Neural Special Tests- Upper Body Median Nerve Tension Test Results + L>R Comments Forearm tension. Radial Nerve Tension Test Results Slight tension Left, - right Ulnar Nerve Tension Test Results + left, - right PT-OP-M Strength Start: 10/16/22 18:13 Freq: Status: Active Protocol: Document 11/27/22 10:34 LRN (Rec: 11/27/22 12:12 LRN [id number]) Cervical Spine Strength Cervical Spine Manual Muscle Testing Testing Position Sitting Comments All strength is 5/5. PT-OP-T Assessment and Plan Start: 10/16/22 18:13 Freq: Status: Active Protocol: Document 01/22/23 12:38 LRN (Rec: 01/22/23 13:01 LRN [id number]) Physical Therapy Assessment Goals Four Impairment Decreased function. Impairment UE Quickdash score is 29, (20- 39% impaired, score 20-39) Disability Rater Goal (LTG) Pt will be able to start weedeater with L arm and kayak for short distance without pain (last time kayaked was February of 2022). LTG Duration 12/25/22 (01/22/23: NOT MET GOAL) Three Impairment Decrease L scapular stabilizer strength w/poor scapulohumeral rhythm Impairment Pt shows dysfunctional L scapulohumeral rhythm at 90 deg's AB and on return from max AB. Short Term Goal (STG) Pt demonstrates normal L scapulohumeral rhythm with shoulder AB. 12/03/22: Painful arc 40-90 deg 's. STG Duration 11/19/22 (01/22/23: NOT MET GOAL) Nursing Home Goal (LTG) Strengthen L shoulder to eliminate L shoulder pain at night. 12/03/22: Reports sleeping better and less meds at night needed. LTG Duration 12/25/22 progressing 12/03/22 Two Impairment Decreased L shoulder mobility Short Term Goal (STG) Pt will demonstrate symmetry with L shoulder mobility minimal to no discomfort. STG Duration 11/19/22 (01/22/23: NOT MET GOAL) Nursing Home Goal (LTG) No pain with washing his back when placing L hand over the same and opp shoulder, and drying the back w the L arm overhead. 12/03/22: Pain with removing jacket. LTG Duration 12/25/22 (01/22/23: NOT MET GOAL) One Impairment Lacks appropriate self care HEP Short Term Goal (STG) Educate in proper sitting/ standing posture/ 11/16/22: Pt educated in proper sitting and standing posture with HO's issued. STG Duration 11/06/22 (11/16/22: MET GOAL) Disability Rater Goal (LTG) Pt will be independent in a self care progressive strengthening program for the neck/L shoulder-scapula. 11/16/22: HEP: Scap depression and standing/ sidelie depression/retraction. 11/20/22: HEP: Sleeper stretch, Marion L shoulder IR- belly press. 12/03/22: HEP: Serratus wall slide, sup scapular protraction (serratus punch). 12/11/22: HEP: Subscapularis strengthening ex (hand press to belly and hand lift off back). Reviewed C. AROM stretch (Rot, SB, Circles). LTG Duration 12/25/22 (12/11/22: MET GOAL ) Assessment Summary Assessment Pt was seen for 7 visits with the last visit on 12/11/22. He had canceled his appt to update his plan of care (POC); therefore he is beyond his POC date. He will need a new referral to return to PT. At his last visit he reported improved ability to sleep at night because his neck motion was improved, sleeping 4 hrs at a time. He had very few times of pain laying supine and he reported pain subsided 100%. L shoulder pain pulling up bed sheets decreased by 50%. He continues to have pain taking his coat off. The pt showed signs of impingement syndrome throughout therapy that continued to persist; therefore it is recommended that further imaging would be appropriate to rule out a possible RC tear. The pt is being discharged from therapy due to he is now beyond his POC date. Physical Therapy Plan Other Referrals/Consults Referrals/Consults Recommended Recommend further imaging to rule out RC dysfunction. Discharge Physical Therapy Discharge Comments Pt will need a new referral to return to PT. Thank you for your referral.
== END 2023-01-25 14:11 | disposition home or self-care (01) ==
LOC: PHYS 15:00
PROVIDERS: Family Provider Student in an Organized Health Care Education/Training Program; PCP Student in an Organized Health Care Education/Training Program; Referring Provider Student in an Organized Health Care Education/Training Program; Visit Provider Student in an Organized Health Care Education/Training Program
DX: M12.812 Other specific arthropathies, not elsewhere classified, left shoulder (principal); M40.03 Postural kyphosis, cervicothoracic region; M62.81 Muscle weakness (generalized)
CPT/HCPCS: 97110; 97140; 97162; 97535

== ENCOUNTER → 2024-01-07 09:55 | Outpatient (CLI) | payer OTHER, SELFPAY ==
[2024-01-07 11:45] LABS: Add Manual Diff / Slide Review NO; Basophils Absolute Auto 100 /uL (0-100); Basophils Percent Auto 1.4 % (0-2); Eosinophils Absolute Auto 100 /uL (0-450); Eosinophils Percent Auto 1.2 % (2-4); Hemoglobin 14.3 g/dL (13.5-17.5); Lymphocytes Absolute Auto 2100 /uL (1100-4500); Lymphocytes Percent Auto 30.7 % (25-40); Mean Corpuscular HGB Conc 34.1 % (30-36); Mean Corpuscular Hemoglobin 31.2 PG (26-34); Mean Corpuscular Volume 91.6 fL (80-100); Monocytes Absolute Auto 500 /uL (0-900); Neutrophils Absolute Auto 4000 /uL (1500-7000); Neutrophils Percent Auto 59.7 % (50-75); Platelet Count 243 X10^3/uL (150-400); Red Blood Cell Count 4.59 X10^6/uL (4.5-5.9); Red Cell Distribution Width 13.4 % (11.6-14.8); White Blood Cell Count 6.8 X10^3/uL (4.5-11.0)
[2024-01-07 12:28] LABS: Alanine Aminotransferase 24 IU/L (<50); Albumin 4.2 g/dL (3.5-5.0); Albumin Globulin Ratio 1.4 (1.0-2.8); Alkaline Phosphatase 48 U/L (38-126); Aspartate Aminotransferase 30 IU/L (17-59); BUN Creatinine Ratio 14.4 (6-22); Bilirubin Total 0.8 mg/dL (0.2-1.3); Blood Urea Nitrogen 15 mg/dL (9-20); Calcium 9.6 mg/dL (8.4-10.2); Carbon Dioxide 29 mmol/L (22-32); Chloride 106 mmol/L (98-107); Cholesterol 231 mg/dL (140-199); Estimated Glomerular Filt Rate > 60 mL/min (>60); Globulin 2.9 g/dL (1.7-4.1); Glucose 93 mg/dL (80-110); HDL Cholesterol 60 mg/dL (40-60); HEMOLYSIS < 15 (0-50); LDL Cholesterol Calculated 157 mg/dL (<100); Potassium 4.4 mmol/L (3.4-5.1); Sodium 139 mmol/L (137-145); Total Protein 7.1 g/dL (6.3-8.2); Triglycerides 70 mg/dL (35-150)
[2024-01-07 12:58] LABS: TSH w/ Reflex to FT4 1.69 uIU/mL (0.47-4.68)
[2024-01-08 21:07] LABS: PSA Free % 15.1 % (.); PSA, Total 6.3 ng/mL (0.0-4.0)
== END ==
PROVIDERS: Family Provider Student in an Organized Health Care Education/Training Program; PCP Family Medicine; Referring Provider Family Medicine; Visit Provider Family Medicine
DX: N40.0 Benign prostatic hyperplasia without lower urinary tract symptoms (principal); C61 Malignant neoplasm of prostate; R97.20 Elevated prostate specific antigen [PSA]; E78.00 Pure hypercholesterolemia, unspecified
CPT/HCPCS: 36415; 80053; 80061; 84153; 84154; 84443; 85025

== ENCOUNTER → 2024-07-06 07:17 | Outpatient (CLI) | payer MEDICARE, SELFPAY ==
[2024-07-06 08:30] LABS: Add Manual Diff / Slide Review NO; Basophils Absolute Auto 100 /uL (0-100); Eosinophils Absolute Auto 100 /uL (0-450); Eosinophils Percent Auto 1.5 % (2-4); Hematocrit 42.7 % (41-53); Hemoglobin 14.5 g/dL (13.5-17.5); Lymphocytes Absolute Auto 2300 /uL (1100-4500); Lymphocytes Percent Auto 30.6 % (25-40); Mean Corpuscular Hemoglobin 31.1 PG (26-34); Mean Corpuscular Volume 91.6 fL (80-100); Monocytes Absolute Auto 500 /uL (0-900); Monocytes Percent Auto 6.7 % (3-14); Neutrophils Absolute Auto 4500 /uL (1500-7000); Neutrophils Percent Auto 60.2 % (50-75); Platelet Count 263 X10^3/uL (150-400); Red Blood Cell Count 4.67 X10^6/uL (4.5-5.9); White Blood Cell Count 7.6 X10^3/uL (4.5-11.0)
[2024-07-06 09:01] LABS: Alanine Aminotransferase 23 IU/L (<50); Albumin 4.3 g/dL (3.5-5.0); Albumin Globulin Ratio 1.7 (1.0-2.8); Alkaline Phosphatase 45 U/L (38-126); Aspartate Aminotransferase 31 IU/L (17-59); BUN Creatinine Ratio 10.7 (6-22); Bilirubin Total 0.7 mg/dL (0.2-1.3); Blood Urea Nitrogen 11 mg/dL (9-20); Calcium 9.7 mg/dL (8.4-10.2); Carbon Dioxide 29 mmol/L (22-32); Chloride 102 mmol/L (98-107); Cholesterol 206 mg/dL (140-199); Estimated Glomerular Filt Rate > 60 mL/min (>60); Globulin 2.5 g/dL (1.7-4.1); Glucose 98 mg/dL (80-110); HDL Cholesterol 65 mg/dL (40-60); HEMOLYSIS < 15 (0-50); LDL Cholesterol Calculated 128 mg/dL (<100); Potassium 4.8 mmol/L (3.4-5.1); Sodium 139 mmol/L (137-145); Total Protein 6.8 g/dL (6.3-8.2); Triglycerides 65 mg/dL (35-150)
== END ==
PROVIDERS: Family Provider Student in an Organized Health Care Education/Training Program; PCP Family Medicine; Referring Provider Family Medicine; Visit Provider Family Medicine
DX: Z00.00 Encounter for general adult medical examination without abnormal findings (principal); E78.00 Pure hypercholesterolemia, unspecified; N40.0 Benign prostatic hyperplasia without lower urinary tract symptoms
CPT/HCPCS: 36415; 80053; 80061; 85025